=== PATIENT | female | born 1950 | race Caucasian/White ===

== ENCOUNTER → 2017-10-17 | Outpatient (CLI) | payer MEDICARE, OTHER ==
[2014-10-07 21:50] VITALS: BP 116/80
[~2017-10-17] MED LIST: ALBU8.5H6 IH; ALPR0.5T PO; ASPI-482 PO; ASPI-630 PO; CLOP75TA57 PO; DAPA5TAB PO; DOXE10CA PO; DULO60CA6 PO; ESOM40CA PO; ESOM40CA25 PO; FENT1PAT17 TP; FLUT1DIS3 IH; FURO-69 PO; GEMF600T PO; HYDR-2679 PO; HYDR-2766 PO; INSU100C4 SQ; INSU100I17 SQ; INSU100I18 SQ; INSU100V13 SQ; LIPITOR80 MG PO; LIRA0.6P2 SQ; METO100T7 PO; METO50TA29 PO; METO50TA4 PO; MONT10TA6 PO; NITR0.4T SL; NITR0.4T22 SL; POTA10TA PO; POTA20TA82 PO; PREG50CA PO; VANC1PLA2 IV; XOPENEX1.25 MG/3 IH; XOPENEX1.25 MG/3 NEB
[2017-10-17 13:42] LABS: ALBUMIN 3.4 g/dL (3.4-5.0); ALBUMIN/GLOBULIN RATIO 0.8 (1.0-1.7); CALCIUM 9.2 mg/dL (8.5-10.1); CREATININE 0.7 mg/dL (0.6-1.0); GFR 83.7; POTASSIUM 4.4 mmol/L (3.5-5.1); TOTAL BILIRUBIN 0.4 mg/dL (0.2-1.0); TOTAL PROTEIN 7.5 g/dL (6.4-8.2)
[2017-10-18 17:37] LABS: THYROID STIM HORMONE (TSH) 2.473 uIU/mL (0.358-3.740)
== END | disposition home or self-care (01) ==
LOC: LAB 11:45
PROVIDERS: ATTEND Nurse Practitioner
DX: E78.5 Hyperlipidemia, unspecified (principal); R00.2 Palpitations
CPT/HCPCS: 36415; 80053; 80061; 83735; 84443

== ENCOUNTER → 2017-11-23 | Outpatient (CLI) | payer MEDICARE, OTHER ==
[2014-10-07 21:50] VITALS: BP 116/80
[~2017-11-23] MED LIST changes: +IOHEXOL 300 MG/ML 75 ML VIAL. IV ONE
--- NOTE | 2017-11-23 14:36 | RAD ---
EXAM: Chest CT with intravenous contrast. HISTORY: Productive cough. TECHNIQUE: Computed tomographic images of the chest were obtained following the administration of 75 cc Omnipaque 300 intravenous contrast. Multiplanar reformatting was performed. *One or more of the following individualized dose reduction techniques were utilized for this examination: 1. Automated exposure control. 2. Adjustment of the mA and/or kV according to patient size. 3. Use of iterative reconstruction technique. COMPARISON: 07/16/2014. FINDINGS: There is no pulmonary infiltrate, pleural effusion or pneumothorax. There is bilateral basilar, lingula and right middle lobe atelectasis. There is also suspected right middle lobe and lingular scarring. No suspicious pulmonary nodule is seen. The heart is normal in size. The aorta is normal in caliber. There are prominent right inferior paraesophageal lymph nodes, the largest of which measures 2.1 cm in long axis. These are minimally increased compared to the prior study. There is coronary artery atherosclerosis. There is calcifications within the inferior right thyroid lobe. There is hepatomegaly and hepatic steatosis. There are degenerative changes within the spine. No suspicious osseous lesion is seen. IMPRESSION: 1. Bilateral mid and lower thoracic atelectasis and suspected pleural parenchymal scarring. There is infiltrate or suspicious pulmonary nodule. 2. Prominent inferior right paraesophageal lymph nodes. The minimal interval increase in the size of these lymph nodes over a three-year interval compared to the prior study favors a benign physiologic or reactive etiology rather than underlying neoplasm. 3. Hepatomegaly and hepatic steatosis. Electronically signed by: Jasmin Kramer MD (11/23/2017 2:33 PM) [email or web address]
== END | disposition home or self-care (01) ==
LOC: CT 12:58
PROVIDERS: ATTEND Physician Assistant
DX: I25.10 Atherosclerotic heart disease of native coronary artery without angina pectoris (principal); K76.0 Fatty (change of) liver, not elsewhere classified; R16.0 Hepatomegaly, not elsewhere classified; R91.1 Solitary pulmonary nodule
CPT/HCPCS: 71260; Q9967

== ENCOUNTER → 2017-12-27 | Day surgery (SDC) | payer MEDICARE, OTHER ==
[~2017-12-27] MED LIST changes: +ALBUTEROL SULFATE 2.5 MG/3 ML NEBU. NEB PRN; +ATROPINE 0.5 MG/5 ML DISP.SYRIN. IV PRN; +FLUT9.9S NS; +INSU100V31 SQ; -IOHEXOL 300 MG/ML 75 ML VIAL. IV ONE; +IV RINGERS SOLUTION,LACTATED 1,000 ML IV SCH; +LIDOCAINE 2% PF Vial for OR 5 ML VIAL. ONE; +NALOXONE 0.4 MG/ML VIAL. IV PRN; +ONDANSETRON PF 4 MG/2 ML VIAL. IV PRN; +PROPOFOL 10,000 MCG/ML (20ML) VIAL IV ONE; +PROPOFOL 20 ML IV ONE; +diphenhydrAMINE 50 MG/ML VIAL IV PRN
[2017-12-27 12:49] VITALS: BP 134/85
== END | disposition home or self-care (01) ==
LOC: SURG 10:18
PROVIDERS: ATTEND Internal Medicine Gastroenterology
DX: Z09 Encounter for follow-up examination after completed treatment for conditions other than malignant neoplasm (principal); Z86.010 Personal history of colon polyps; K57.30 Diverticulosis of large intestine without perforation or abscess without bleeding; K64.8 Other hemorrhoids; K64.4 Residual hemorrhoidal skin tags; I10 Essential (primary) hypertension; E11.9 Type 2 diabetes mellitus without complications; J44.9 Chronic obstructive pulmonary disease, unspecified; I25.10 Atherosclerotic heart disease of native coronary artery without angina pectoris; M19.90 Unspecified osteoarthritis, unspecified site; K21.9 Gastro-esophageal reflux disease without esophagitis; E66.9 Obesity, unspecified; M79.7 Fibromyalgia; L40.50 Arthropathic psoriasis, unspecified; Z98.51 Tubal ligation status; Z98.890 Other specified postprocedural states; Z86.73 Personal history of transient ischemic attack (TIA), and cerebral infarction without residual deficits; Z88.8 Allergy status to other drugs, medicaments and biological substances; Z68.41 Body mass index [BMI] 40.0-44.9, adult; Z87.891 Personal history of nicotine dependence; Z79.82 Long term (current) use of aspirin; Z79.4 Long term (current) use of insulin; Z79.899 Other long term (current) drug therapy
CPT/HCPCS: 45378; J2704; J7120; J2001

== ENCOUNTER → 2018-03-12 | Outpatient (CLI) | payer MEDICARE, OTHER ==
[2017-12-27 12:49] VITALS: BP 134/85
[~2018-03-12] MED LIST changes: -ALBUTEROL SULFATE 2.5 MG/3 ML NEBU. NEB PRN; -ATROPINE 0.5 MG/5 ML DISP.SYRIN. IV PRN; -IV RINGERS SOLUTION,LACTATED 1,000 ML IV SCH; -LIDOCAINE 2% PF Vial for OR 5 ML VIAL. ONE; -NALOXONE 0.4 MG/ML VIAL. IV PRN; -ONDANSETRON PF 4 MG/2 ML VIAL. IV PRN; -PROPOFOL 10,000 MCG/ML (20ML) VIAL IV ONE; -PROPOFOL 20 ML IV ONE; -diphenhydrAMINE 50 MG/ML VIAL IV PRN
--- NOTE | 2018-03-12 17:03 | RAD ---
Pelvic ultrasound dated 03/12/2018. No comparison available. Clinical indication: Left lower quadrant pain. Intermittent for years. FINDINGS: Transabdominal and transvaginal imaging was performed. Uterus measures 7.4 x 4.9 x 2.8 cm. Hypoechoic nodules within the uterine body measuring up to 1.2 cm in size. The endometrial complex is normal in thickness measuring up to 3 mm. Right ovary measures 1.8 x 1.7 x 1.3 cm. Left ovary measures 2.5 x 1.8 x 1.4 cm. No adnexal mass or free fluid. IMPRESSION: 1. No acute sonographic abnormality. 2. Fibroid uterus. Electronically signed by: Giorgi De Los Santos MD (03/12/2018 5:00 PM) [id number]
== END | disposition home or self-care (01) ==
LOC: US 14:43
PROVIDERS: ATTEND Physician Assistant
DX: D25.9 Leiomyoma of uterus, unspecified (principal); I10 Essential (primary) hypertension; E11.9 Type 2 diabetes mellitus without complications; J44.9 Chronic obstructive pulmonary disease, unspecified; K21.9 Gastro-esophageal reflux disease without esophagitis; E78.5 Hyperlipidemia, unspecified
CPT/HCPCS: 76830; 76856

== ENCOUNTER → 2018-06-27 | Outpatient (CLI) | payer MEDICARE, OTHER ==
[2017-12-27 12:49] VITALS: BP 134/85
[2018-06-27 11:21] LABS: ALBUMIN 3.4 g/dL (3.4-5.0); ALBUMIN/GLOBULIN RATIO 0.8 (1.0-1.7); CALCIUM 9.2 mg/dL (8.5-10.1); CREATININE 0.8 mg/dL (0.6-1.0); GFR 71.5; POTASSIUM 4.4 mmol/L (3.5-5.1); TOTAL BILIRUBIN 0.4 mg/dL (0.2-1.0); TOTAL PROTEIN 7.6 g/dL (6.4-8.2)
[2018-06-27 21:12] LABS: HEMOGLOBIN A1C 8.8 % (4.8-5.6)
== END | disposition home or self-care (01) ==
LOC: LAB 10:16
PROVIDERS: ATTEND Nurse Practitioner
DX: E78.5 Hyperlipidemia, unspecified (principal); E11.9 Type 2 diabetes mellitus without complications; Z79.4 Long term (current) use of insulin
CPT/HCPCS: 36415; 80053; 80061; 83036

== ENCOUNTER → 2018-11-07 | Outpatient (CLI) | payer MEDICARE, OTHER ==
[2017-12-27 12:49] VITALS: BP 134/85
[~2018-11-07] MED LIST changes: -HYDR-2766 PO; +HYDR-2769 PO
== END | disposition home or self-care (01) ==
LOC: SURG 14:56
PROVIDERS: ATTEND Anesthesiology Pain Medicine
DX: M25.551 Pain in right hip (principal); E11.9 Type 2 diabetes mellitus without complications; J44.9 Chronic obstructive pulmonary disease, unspecified; I11.0 Hypertensive heart disease with heart failure; I50.9 Heart failure, unspecified; Z86.73 Personal history of transient ischemic attack (TIA), and cerebral infarction without residual deficits
CPT/HCPCS: 99204

== ENCOUNTER → 2018-11-29 | Outpatient (CLI) | payer MEDICARE, OTHER ==
[2017-12-27 12:49] VITALS: BP 134/85
[~2018-11-29] MED LIST changes: +BUPIVACAINE MPF 0.25% 10 ML VIAL. ONE; +IOHEXOL 300 MG/ML 50 ML VIAL. ONE; +LIDOCAINE 1% PF 30 ML VIAL. ONE; +methylPREDNISolone ACETATE 80 MG/ML VIAL. ONE
== END | disposition home or self-care (01) ==
LOC: SURG 13:06
PROVIDERS: ATTEND Anesthesiology Pain Medicine
DX: M16.12 Unilateral primary osteoarthritis, left hip (principal); Z88.2 Allergy status to sulfonamides; I10 Essential (primary) hypertension; E11.9 Type 2 diabetes mellitus without complications; Z79.899 Other long term (current) drug therapy; Z79.82 Long term (current) use of aspirin; Z79.84 Long term (current) use of oral hypoglycemic drugs; Z79.01 Long term (current) use of anticoagulants; J44.9 Chronic obstructive pulmonary disease, unspecified; I25.10 Atherosclerotic heart disease of native coronary artery without angina pectoris; K21.9 Gastro-esophageal reflux disease without esophagitis; Z86.73 Personal history of transient ischemic attack (TIA), and cerebral infarction without residual deficits; Z88.1 Allergy status to other antibiotic agents; Z88.6 Allergy status to analgesic agent; Z88.8 Allergy status to other drugs, medicaments and biological substances
CPT/HCPCS: 20610; 77002; 82947; J1040; J2001; J3490; Q9967; 20611

== ENCOUNTER → 2018-12-13 | Outpatient (CLI) | payer MEDICARE, OTHER ==
[2017-12-27 12:49] VITALS: BP 134/85
[~2018-12-13] MED LIST changes: -BUPIVACAINE MPF 0.25% 10 ML VIAL. ONE; -IOHEXOL 300 MG/ML 50 ML VIAL. ONE; -LIDOCAINE 1% PF 30 ML VIAL. ONE; -methylPREDNISolone ACETATE 80 MG/ML VIAL. ONE
--- NOTE | 2018-12-13 16:51 | RAD ---
DATE: 12/13/2018 EXAM: MAMMO BRYAN DÍAZ, BREAST LEFT HISTORY: Left breast lump. COMPARISON: 03/07/2012 mammographic exam This study was interpreted with the benefit of Computerized Aided Detection (CAD). Breast Density: SCATTERED The breast parenchyma shows scattered fibroglandular densities. Breast parenchyma level B. FINDINGS: At the left lower inner quadrant 12 cm from the nipple , there is a spiculated irregularly marginated mass with feli shaped calcifications and distortion noted. This finding measures up to 3.2 cm anteroposterior x 1.8 cm transverse x 1.7 cm longitudinal. Benign right axillary lymph nodes are present. No right breast masses. Limited left breast ultrasound examination at approximately 8:00 region demonstrates a hypoechoic mass measuring 1.3 cm x 1 cm x 0.7 cm tall. Flow is evident within it. It is irregularly marginated. IMPRESSION: Left lower inner breast mass posteriorly located of significant concern for malignancy. Biopsy by ultrasound guidance is recommended. On 12/13/2018 at 4:46 PM, results reported to Dr. Villavicencio's nurse Jesus Michaud. BI-RADS CATEGORY: 4 SUSPICIOUS ABNORMALITY- BIOPSY SHOULD BE CONSIDERED RECOMMENDED FOLLOW-UP: BIO BIOPSY RECOMMENDED PQRS compliance statement: Patient information was entered into a reminder system with a target due date pending biopsy for the next mammogram. Mammography is a sensitive method for finding small breast cancers, but it does not detect them all and is not a substitute for careful clinical examination. A negative mammogram does not negate a clinically suspicious finding and should not result in delay in biopsying a clinically suspicious abnormality. "Our facility is accredited by the [employer]ammography [employer]."
== END | disposition home or self-care (01) ==
LOC: MAMMO 13:42
PROVIDERS: ATTEND Family Medicine
DX: N63.24 Unspecified lump in the left breast, lower inner quadrant (principal)
CPT/HCPCS: 76641; 77066; G0279; 77062

== ENCOUNTER 2019-04-30 14:45 | Emergency (ER) | payer MEDICARE, OTHER ==
[~2019-04-30] VITALS: Ht 154.9 cm; Wt 99.8 kg
[~2019-04-30 14:45] MED LIST changes: -MONT10TA6 PO; +MONT10TA80 PO
[2019-04-30] MEDS ORDERED: HYDROcodone/APAP 5/325MG 1 TAB TABLET PO ONE ×2 (15:15→16:50)
--- NOTE | 2019-04-30 15:18 | EKG ---
[address] [address] Test Date: 2019-04-30 Test Time: 15:19:00 Pat Name: JACKSON CARRILLO Department: Room: Gender: F Contract Coordinator: : 1950 Requested By: MARY METZ Order Number: [id number] Reading MD: Manish Nathan MD Measurements Intervals [place] Rate: 83 P: 53 MI: 128 QRS: 34 QRSD: 74 T: 48 QT: 350 QTc: 417 Interpretive Statements SINUS RHYTHM Electronically Signed On 05-01-2019 14:14:15 CDT by Manish Nathan MD
[2019-04-30 15:28] LABS: BASO % 1 % (0-3); EOS # 0.2 x10^3/uL (0.0-0.7); EOS % 2 % (0-3); HEMATOCRIT 43.5 % (36.0-47.0); HEMOGLOBIN 14.5 g/dL (12.0-15.5); LYMPH # 1.6 x10^3/uL (1.0-4.8); LYMPH % 18 % (24-48); MEAN CORPUSCULAR HEMOGLOBIN 30 pg (25-35); MEAN CORPUSCULAR HGB CONC 33 g/dL (31-37); MEAN CORPUSCULAR VOLUME 91 fL (79-100); MONO # 0.7 x10^3/uL (0.0-1.1); MONO % 8 % (0-9); NEUT # 6.2 x10^3uL (1.8-7.7); NEUT % 72 % (31-73); PLATELET COUNT 242 x10^3/uL (140-400); RED BLOOD COUNT 4.81 x10^6/uL (3.50-5.40); WHITE BLOOD COUNT 8.6 x10^3/uL (4.0-11.0)
[2019-04-30 15:37] LABS: ALBUMIN 3.7 g/dL (3.4-5.0); ALBUMIN/GLOBULIN RATIO 0.9 (1.0-1.7); CALCIUM 9.4 mg/dL (8.5-10.1); CREATININE 0.8 mg/dL (0.6-1.0); GFR 71.3; POTASSIUM 4.4 mmol/L (3.5-5.1); TOTAL BILIRUBIN 0.3 mg/dL (0.2-1.0); TOTAL PROTEIN 7.8 g/dL (6.4-8.2)
--- NOTE | 2019-04-30 15:41 | RAD ---
EXAM: CHEST 1 VIEW History: Chest pain COMPARISON: 07/15/2014 TECHNIQUE: Single portable radiograph of the chest FINDINGS: The cardiac silhouette is unremarkable. The lungs are clear bilaterally. The costophrenic sulci are clear and well demarcated. IMPRESSION: No radiographic evidence of an acute cardiopulmonary process. Electronically signed by: Suresh Tiwari MD (04/30/2019 3:38 PM) [place] [id number]
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
[2019-04-30] MEDS ORDERED: OXYC1TAB15 PO (17:32)
[2019-04-30] MEDS ORDERED: CLIN300C8 PO (18:12)
[2019-04-30 18:35] VITALS: BP 155/91
== END 2019-04-30 18:35 | disposition home or self-care (01) ==
LOC: ER 14:45
DX: T21.01XA Burn of unspecified degree of chest wall, initial encounter (principal); M19.90 Unspecified osteoarthritis, unspecified site; Z86.73 Personal history of transient ischemic attack (TIA), and cerebral infarction without residual deficits; E11.9 Type 2 diabetes mellitus without complications; I11.9 Hypertensive heart disease without heart failure; Z88.6 Allergy status to analgesic agent; Z88.2 Allergy status to sulfonamides; Z88.1 Allergy status to other antibiotic agents; Z88.8 Allergy status to other drugs, medicaments and biological substances; Y63.2 Overdose of radiation given during therapy
CPT/HCPCS: 36415; 71045; 80053; 84484; 85025; 93005; 99285

== ENCOUNTER → 2019-05-16 | Outpatient (CLI) | payer MEDICARE, OTHER ==
[2019-04-30 18:35] VITALS: BP 155/91
[~2019-05-16] MED LIST changes: +CLIN300C8 PO; +OXYC1TAB15 PO
--- NOTE | 2019-05-16 13:01 | RAD ---
EXAM: CT Abdomen and Pelvis without IV contrast CLINICAL HISTORY: Gross hematuria, pelvic pain. COMPARISON: none TECHNIQUE: Helical CT of the abdomen and pelvis without intravenous contrast. Axial, coronal and sagittal reformatted images were generated. PQRS compliance statement - One or more of the following individualized dose reduction techniques were utilized for this study: 1. Automated exposure control 2. Adjustment of the mA and/or kV according to patient size 3. Use of iterative reconstruction technique FINDINGS: Lack of intravenous contrast limits evaluation of solid organs, vasculature, and lymph nodes. Lower chest: Lung bases are clear. Abdomen and Pelvis: Diffuse hepatic hypoattenuation likely hepatic steatosis. Liver is enlarged measuring 20 cm in craniocaudal dimension. Spleen is unremarkable. Adrenal glands are normal. Pancreas is unremarkable. Gallbladder is normal. No biliary ductal dilatation. No renal tract calculus. No focal renal lesion. No hydronephrosis. No hydroureter. Marked bladder wall thickening, accentuated by low bladder volume. Mild associated fat infiltration. Moderate colonic stool content is seen. Appendix is normal. No significant right lower quadrant. Colonic fat infiltration.No small or large bowel dilatation to suggest bowel obstruction. No abdominal or pelvic ascites. No abdominal pelvic lymphadenopathy. A few mildly prominent mesenteric and iliac chain/inguinal lymph node are incidentally seen. Atherosclerotic calcifications of aorta are seen. Bones: Degenerative changes in spine most prominent at L4-5. Hip joint degenerative changes are seen, right greater than left. Subchondral sclerosis and irregularity of the left SI joint, greater than right SI joint. IMPRESSION: 1. The bladder is decompressed although there is marked bladder wall thickening with associated fat infiltration, consistent with cystitis, possibly infectious or inflammatory, and underlying mass is not excluded. 2. Bilateral asymmetric sacroiliitis, although may be seen with spondyloarthropathy, favored to represent degenerative change. 3. Hepatomegaly and hepatic steatosis. Electronically signed by: Reno Garner MD (05/16/2019 12:58 PM) [email or web address]
== END | disposition home or self-care (01) ==
LOC: CT 12:23
PROVIDERS: ATTEND Family Medicine
DX: N32.89 Other specified disorders of bladder (principal); K76.0 Fatty (change of) liver, not elsewhere classified; I70.0 Atherosclerosis of aorta; M47.816 Spondylosis without myelopathy or radiculopathy, lumbar region; M16.0 Bilateral primary osteoarthritis of hip; M46.1 Sacroiliitis, not elsewhere classified
CPT/HCPCS: 74176

== ENCOUNTER → 2019-12-09 | Outpatient (CLI) | payer MEDICARE, OTHER ==
[~2019-12-09] MED LIST changes: -NITR0.4T SL; +NITR0.4T24 SL; +POTA20TA4 PO; -POTA20TA82 PO
--- NOTE | 2019-12-09 13:42 | RAD ---
DATE: 12/09/2019 1:05 PM EXAM: DIGITAL DIAGNOSTIC RT HISTORY: Left mastectomy. Screening right breast. COMPARISON: December 13, 2018 Right CC and MLO views of the breasts were performed. This study was interpreted with the benefit of Computerized Aided Detection (CAD). FINDINGS: Breast Density: SCATTERED The breast parenchyma shows scattered fibroglandular densities. Breast parenchyma level B Benign-appearing calcifications, unchanged. No suspicious masses, microcalcifications or architectural distortion. IMPRESSION: No mammographic evidence of malignancy. BI-RADS CATEGORY: 2 BENIGN FINDING(S) RECOMMENDED FOLLOW-UP: 12M 12 MONTH FOLLOW-UP Annual screening mammography is recommended, unless clinically indicated sooner based on symptoms or change in physical exam. PQRS compliance statement: Patient information was entered into a reminder system with a target due date one year for the next mammogram. Mammography is a sensitive method for finding small breast cancers, but it does not detect them all and is not a substitute for careful clinical examination. A negative mammogram does not negate a clinically suspicious finding and should not result in delay in biopsying a clinically suspicious abnormality. "Our facility is accredited by the [employer]ammography [employer]."
== END | disposition home or self-care (01) ==
LOC: MAMMO 13:00
PROVIDERS: ATTEND Internal Medicine Hematology & Oncology
DX: C50.312 Malignant neoplasm of lower-inner quadrant of left female breast (principal); Z17.0 Estrogen receptor positive status [ER+]
CPT/HCPCS: 77065

== ENCOUNTER → 2020-04-27 | Outpatient (CLI) | payer MEDICARE, OTHER ==
--- NOTE | 2020-04-27 15:04 | RAD ---
Exam: Left breast ultrasound INDICATION: 70-year-old woman status post left mastectomy and radiation January 2019 with a palpable lump in the mastectomy bed. COMPARISON: Bilateral mammogram and targeted left breast ultrasound of 12/13/2018. TECHNIQUE: Grayscale and color Doppler imaging of the left chest wall in the area of palpable concern, where the lower outer quadrant left breast was located. FINDINGS: An oval, parallel orientation circumscribed 6.8 x 3.6 x 5.9 cm mixed solid and cystic mass is present in the lower-outer quadrant left chest wall where the 4:00 position would be 5 cm from the nipple. This is remote from the site of patient's previous primary malignancy, evident at the lower inner quadrant left breast. There is no internal vascularity to this mass. IMPRESSION: Sonographically benign nearly 6 cm mixed solid and cystic mass in the lower-outer quadrant anterior left chest wall, compatible with a postoperative seroma. Recommend clinical management which may include core needle biopsy or surgical excision if clinically appropriate. In the absence of any clinically suspicious findings, routine mammographic screening of the contralateral breast and clinical follow-up of the palpable lump in the left chest wall is recommended. BI-RADS Category 2 Benign findings Clinical management recommended
== END ==
LOC: US 12:18
PROVIDERS: ATTEND Internal Medicine Hematology & Oncology
DX: C50.312 Malignant neoplasm of lower-inner quadrant of left female breast (principal); N60.02 Solitary cyst of left breast; Z17.0 Estrogen receptor positive status [ER+]
CPT/HCPCS: 76641

== ENCOUNTER 2020-10-08 07:25 | Inpatient (IN) | payer MEDICARE, OTHER ==
[~2020-10-08] VITALS: Ht 154.9 cm; Wt 105.2 kg
[~2020-10-08 07:25] MED LIST changes: -CLIN300C8 PO; +CLIN300C9 PO
[2020-10-08] MEDS ORDERED: IV NORMAL SALINE 500ML 500 ML IV ONE (07:45)
--- NOTE | 2020-10-08 07:50 | PHYS DOC ---
Past History Past Medical History: Arthritis, Cancer, CVA, Diabetes, Heart Disease, Hypertension, Other Past Surgical History: Cancer Surgery, Other Additional Past Surgical Histo: tonsillectomy, hemmoroidectomy Smoking: Non-smoker Alcohol Use: None Drug Use: None General Adult EDM: Chief Complaint: CHEST PAIN HPI: HPI: This is a pleasant 70-year-old female with a history of carotid stenosis diabetes and hypertension who presents the emergency department today with chest pain. It is a mild to moderate pressure sensation associated with palpitations. Started at 4:00 this morning. Associated with some nausea without diaphoresis. She denies vomiting. The pain is in the sternum and epigastrium. It is nonradiating, but she additionally does have back pain which she reports is chronic. Review of systems negative for fevers chills diaphoresis. Positive for chest pain and abdominal pain. Negative for headache nuchal rigidity neck stiff pain. Negative for focal neurologic deficit, slurred speech dizziness. All other review of systems negative. ED course: 70-year-old female presenting with chest pain and abdominal pain. EKG reviewed by myself shows sinus rhythm with a tachycardic rate. ST segments show some ST depression in the lateral leads which may be rate dependent. Patient was given aspirin nitroglycerin and IV fluids. On reexamination she is feeling much better. Her pain is almost entirely gone on reexamination. CT angiogram negative for pulmonary embolism. D-dimer was mildly elevated. CBC unremarkable. Chemistry panel shows negative troponin. Urinalysis unremarkable. I spoke with Dr. WILLS on recommendations for admission either to [place] or [place]. He recommends admitting to [facility] for serial troponins and cardiology consultation. The patient was then admitted to Dr. Cortez who accepts patient for admission. Patient's pain did improve substantially on admission. Review of Systems: Review of Systems: Constitutional: Denies fever or chills Eyes: Denies change in visual acuity HENT: Denies nasal congestion or sore throat Respiratory: Denies cough or shortness of breath Cardiovascular: Denies chest pain or edema GI: Denies abdominal pain, nausea, vomiting, bloody stools or diarrhea : Denies dysuria Musculoskeletal: Denies back pain or joint pain Integument: Denies rash Neurologic: Denies headache, focal weakness or sensory changes Endocrine: Denies polyuria or polydipsia Lymphatic: Denies swollen glands Psychiatric: Denies depression or anxiety Current Medications: Current Meds: Current Medications Medications (Trade) Dose Ordered Sig/Elaina Start Time Stop Time Status Last Admin Dose Admin Sodium Chloride 500 ml @ 0 mls/hr 1X ONCE 10/08/20 07:45 10/08/20 07:46 DC Allergies: Allergies: Allergies Coded Allergies Type Severity Reaction Last Updated Verified tramadol Allergy Severe seizure 04/30/19 Yes clonazepam Allergy Intermediate 04/30/19 Yes diltiazem Allergy Intermediate 04/30/19 Yes nitrofurantoin Allergy Intermediate rash 04/30/19 Yes valsartan Allergy Intermediate chest pain 04/30/19 Yes Sulfa (Sulfonamide Antibiotics) Allergy Mild 04/30/19 Yes cephalexin Allergy Mild cramps 04/30/19 Yes isosorbide Allergy Mild Rash 04/30/19 Yes moxifloxacin Allergy Mild rash 04/30/19 Yes lisinopril Allergy Unknown 04/30/19 Yes Physical Exam: PE: Constitutional: Well developed, well nourished, no acute distress, non-toxic appearance. [] HENT: Normocephalic, atraumatic, bilateral external ears normal, oropharynx moist, no oral exudates, nose normal. [] Eyes: PERRLA, EOMI, conjunctiva normal, no discharge. [] Neck: Normal range of motion, no tenderness, supple, no stridor. [] Cardiovascular:Heart rate regular rhythm, no murmur [] Lungs & Thorax: Bilateral breath sounds clear to auscultation [] Abdomen: Bowel sounds normal, soft, no tenderness, no masses, no pulsatile masses. [] Skin: Warm, dry, no erythema, no rash. [] Back: No tenderness, no CVA tenderness. [] Extremities: No tenderness, no cyanosis, no clubbing, ROM intact, no edema. [] Neurologic: Alert and oriented X 3, normal motor function, normal sensory function, no focal deficits noted. [] Psychologic: Affect normal, judgement normal, mood normal. [] Current Patient Data: Vital Signs: Vital Signs Date Time Temp Pulse Resp B/P (MAP) Pulse Ox O2 Delivery O2 Flow Rate FiO2 10/08/20 07:42 211/104 (139) 10/08/20 07:32 97.8 98 17 92 Room Air EKG: EKG: [] Initial EKG at 732 shows sinus rhythm with a tachycardic rate. Intervals are within normal limits. ST segments show less than [address] depression in lead V3 and V4. No reciprocal ST elevation. Does not meet STEMI criteria. 2nd Posterior EKG obtained shows no ST elevation in leads V7,8 or 9. at 758AM. Radiology/Procedures: Radiology/Procedures: [] Heart Score: Risk Factors: Risk Factors: DM, Current or recent (<one month) smoker, HTN, HLP, family history of CAD, obesity. Risk Scores: Score 0 - 3: 2.5% MACE over next 6 weeks - Discharge Home Score 4 - 6: 20.3% MACE over next 6 weeks - Admit for Clinical Observation Score 7 - 10: 72.7% MACE over next 6 weeks - Early Invasive Strategies Course & Med Decision Making: Course & Med Decision Making Pertinent Labs and Imaging studies reviewed. (See chart for details) [] Dragon Disclaimer: Dragon Disclaimer: This electronic medical record was generated, in whole or in part, using a voice recognition dictation system. Departure Departure: Impression: Primary Impression: Chest pain Referrals: SHOBHA QUEVEDO MD (PCP) HEART Score for Chest Pain PTs The HEART Score for CP Pts HEART Score for Chest Pain: HEART Score for Chest Pain Response (Comments) Value History Moderately Suspicious 1 ECG Nonspecific Repolarizatio 1 Age > 65 2 Risk Factors 1 or 2 Risk Factors 1 Troponin < Normal Limit 0 Total 5 Risk Factors: Risk Factors: DM, Current or recent (<one month) smoker, HTN, HLP, family history of CAD, obesity. Risk Scores: Score 0 - 3: 2.5% MACE over next 6 weeks - Discharge Home Score 4 - 6: 20.3% MACE over next 6 weeks - Admit for Clinical Observation Score 7 - 10: 72.7% MACE over next 6 weeks - Early Invasive Strategies ZAINA RAMOS MD Oct 08, 2020 07:50
[2020-10-08 08:09] LABS: BASO # 0.1 x10^3/uL (0.0-0.2); BASO % 1 % (0-3); EOS # 0.2 x10^3/uL (0.0-0.7); EOS % 2 % (0-3); HEMATOCRIT 43.5 % (36.0-47.0); HEMOGLOBIN 14.2 g/dL (12.0-15.5); LYMPH # 2.7 x10^3/uL (1.0-4.8); LYMPH % 28 % (24-48); MEAN CORPUSCULAR HEMOGLOBIN 30 pg (25-35); MEAN CORPUSCULAR HGB CONC 33 g/dL (31-37); MEAN CORPUSCULAR VOLUME 91 fL (79-100); MONO # 0.7 x10^3/uL (0.0-1.1); MONO % 7 % (0-9); NEUT # 5.9 x10^3uL (1.8-7.7); NEUT % 62 % (31-73); PLATELET COUNT 225 x10^3/uL (140-400); RED CELL DISTRIBUTION WIDTH 14.7 % (11.5-14.5); WHITE BLOOD COUNT 9.5 x10^3/uL (4.0-11.0)
[2020-10-08] MEDS ORDERED: NITROGLYCERIN SUBLINGUAL 0.4 MG BOTTLE OF 25. SL ONE (08:10)
[2020-10-08] MEDS ORDERED: MORPHINE SULFATE 2 MG/ML DISP.SYRIN. IV ONE (08:15)
[2020-10-08 08:21] LABS: CALCIUM 9.3 mg/dL (8.5-10.1); CREATININE 0.7 mg/dL (0.6-1.0); POTASSIUM 3.9 mmol/L (3.5-5.1)
--- NOTE | 2020-10-08 08:22 | RAD ---
XR CHEST 1V 10/08/2020 7:41 AM INDICATION: Chest pain COMPARISON: 04/30/2019 TECHNIQUE: Portable frontal view of the chest is provided. FINDINGS: The cardiomediastinal silhouette is within normal limits. Lungs are clear. There are no significant pleural effusions. There is no pulmonary vascular congestion. No pneumothora x. No suspicious osseous abnormality. IMPRESSION: There is no acute cardiopulmonary process. Electronically signed by: Deirdre Pham MD (10/08/2020 8:20 AM) [facility]
[2020-10-08 08:27] LABS: ALBUMIN 3.5 g/dL (3.4-5.0); DIRECT BILIRUBIN 0.1 mg/dL (0.0-0.2); MAGNESIUM 2.1 mg/dL (1.8-2.4); TOTAL BILIRUBIN 0.2 mg/dL (0.2-1.0); TOTAL PROTEIN 7.9 g/dL (6.4-8.2)
[2020-10-08] MEDS ORDERED: ONDANSETRON PF 4 MG/2 ML VIAL. IV ONE (08:30)
[2020-10-08] MEDS ORDERED: IOHEXOL 350 MG/ML 100 ML VIAL. IV ONE (08:45)
--- NOTE | 2020-10-08 08:45 | EKG ---
[facility] ED [facility] [address] [place] [id number] Test Date: 2020-10-08 Test Time: 07:32:44 Pat Name: JACKSON CARRILLO Department: Room: Gender: F Reports Analyst: : 1950 Requested By: ZAINA RAMOS Order Number: [id number] Reading MD: Jovan Khan Measurements Intervals [place] Rate: 121 P: 12 [place]: 110 QRS: 26 QRSD: 78 T: 51 QT: 318 QTc: 454 Interpretive Statements SINUS TACHYCARDIA LEFT ATRIAL ABNORMALITY ABNORMAL ECG Electronically Signed On 10-11-2020 10:14:07 FRONT DESK TEAM MEMBER by Jovan Khan
--- NOTE | 2020-10-08 08:47 | EKG ---
[facility] ED [address] [place] [id number] Test Date: 2020-10-08 Test Time: 07:58:50 Pat Name: JACKSON CARRILLO Department: Room: Gender: F Bun Icer: : 1950 Requested By: ZAINA RAMOS Order Number: [id number] Reading MD: Manish Nathan MD Measurements Intervals [place] Rate: 118 P: 33 [place]: 88 QRS: 19 QRSD: 80 T: 39 QT: 318 QTc: 448 Interpretive Statements SINUS TACHYCARDIA Electronically Signed On 10-09-2020 16:46:29 [employer] OFFICER by Manish Nathan MD
[2020-10-08] MEDS ORDERED: CONTRAST GIVEN. MC PRN (09:00)
--- NOTE | 2020-10-08 10:15 | RAD ---
EXAM: CT Pulmonary Angiogram INDICATION: Reason: cp elveated dimer, eval for pe / Spl. Instructions: / History: TECHNIQUE: Multi-detector row images were acquired from the thoracic inlet through the upper abdomen with the use of IV contrast. Sagittal and coronal images were acquired from the transaxial data. OR P images of the pulmonary arteries were obtained. All CT scans performed at this facility utilize dos e optimization techniques as appropriate to the exam, including the following: Automated exposure con trol and adjustment of the mA and/or KV according to patient size (this includes techniques or standa rdized protocols for targeted exams where dose is indication/reason for exam). IV CONTRAST: Administered COMPARISON: 11/23/[address] with IV contrast FINDINGS: PULMONARY ARTERIES: No pulmonary emboli are identified. CARDIOVASCULAR: There is apparent thickening of the left ventricular free wall interventricular sept um, respectively measuring up to 2.6 and 2.7 cm. Fibrofatty infiltration of the subendocardial myocar dium is suggested at the left ventricular apex with ventricular free wall thinning. Aorta is normal c aliber but shows extensive calcifications. MEDIASTINUM & JEZ: No adenopathy or masses. LUNGS: No pulmonary infiltrate, nodule, or other focal abnormality. PLEURAL SPACE: No pleural effusions or pneumothorax. OSSEOUS & SOFT TISSUE: Surgical changes from a previous left lumpectomy with a large seroma measuring 7.4 x 4.3 x 5.6 cm. ABDOMEN: The visualized portions of the upper abdomen are unremarkable. IMPRESSION: 1. No evidence of pulmonary emboli. 2. Mild bibasilar atelectatic changes with no acute cardiopulmonary process otherwise shown. 3. There is evidence of atherosclerotic vascular disease with possible previous apical myocardial inf arction and hypertrophic cardiomyopathy. Correlate clinically. EXAM: CT Abdomen and Pelvis with IV contrast INDICATION: Reason: cp elveated dimer, eval for pe / Spl. Instructions: / History: TECHNIQUE: Multi-detector row CT images were acquired from the lung bases through the abdomen and pel vis with the use of IV contrast. Sagittal and coronal images were acquired from the transaxial data. All CT scans performed at this facility utilize dose optimization techniques as appropriate to the ex am, including the following: Automated exposure control and adjustment of the mA and/or KV according to patient size (this includes techniques or standardized protocols for targeted exams where dose is indication/reason for exam). IV CONTRAST: Administered ORAL CONTRAST: Not administered COMPARISON: Abdomen and pelvis CT without IV contrast of 05/16/2019 FINDINGS: LOWER CHEST: Unremarkable LIVER: Unremarkable BILIARY SYSTEM: Gallbladder is unremarkable. Bile ducts are not dilated. PANCREAS: Unremarkable SPLEEN: Unremarkable ADRENALS: Unremarkable KIDNEYS & URETERS: Unremarkable BLADDER: Unremarkable REPRODUCTIVE ORGANS: Unremarkable GASTROINTESTINAL: The stomach, small bowel, and colon are unremarkable. The appendix is normal. MESENTERY/PERITONEUM/RETROPERITONEUM: Unremarkable VASCULAR: Extensive atheroscelrotic calcifications in the arteries. LYMPH NODES: No adenopathy OSSEOUS & SOFT TISSUES: Lumbar spinal degenerative changes.. IMPRESSION: No acute findings in the abdomen or pelvis on CT with IV contrast. Electronically signed by: Thad Issa MD (10/08/2020 10:12 AM) [id number]
[2020-10-08 10:24] LABS: BACTERIA,URINE 0 /HPF (0-FEW); BILIRUBIN,URINE NEG (NEG); CLARITY,URINE CLEAR; COLOR,URINE YELLOW; GLUCOSE,URINE NEG (NEG); NITRITE,URINE NEG (NEG); RBC,URINE OCC /HPF (0-2); SQUAMOUS EPITHELIAL CELL,UR FEW /LPF; UROBILINOGEN,URINE 0.2 mg/dL (0.2 mg/dL); WBC,URINE OCC /HPF (0-4)
[2020-10-08] MEDS ORDERED: IV NORMAL SALINE 1,000ML 1,000 ML IV ONE (11:30)
[2020-10-08] MEDS ORDERED: NITROGLYCERIN SUBLINGUAL 0.4 MG BOTTLE OF 25. SL PRN (11:30)
[2020-10-08] MEDS ORDERED: ASPIRIN CHEWABLE 81 MG TABLET. PO ONE (12:00)
[2020-10-08 14:39] VITALS: BP 147/80
[2020-10-08] MEDS ORDERED: ANAS1TAB47 PO (14:53)
[2020-10-08] MEDS ORDERED: CETI10TA74 PO (14:53)
[2020-10-08] MEDS ORDERED: INSU100I13 SQ (14:53)
[2020-10-08] MEDS ORDERED: CRESTOR40 MG PO (14:53)
[2020-10-08] MEDS ORDERED: FLUT1DIS3 IH (14:53)
[2020-10-08] MEDS ORDERED: METF500T16 PO (14:53)
[2020-10-08] MEDS ORDERED: ALBUTEROL SULFATE 2.5 MG/3 ML NEBU. NEB PRN (17:00)
[2020-10-08] MEDS ORDERED: NON FORMULARY ITEM (Levalbuterol Hcl (Xopenex) 1 VIAL) NEB PRN (17:00)
[2020-10-08] MEDS ORDERED: ALBUTEROL SULFATE 8GM INHALER. IH SCH ×2 (17:00→20:00)
[2020-10-08] MEDS: methylPREDNISolone SOD SUCC PF 40 MG/ML VIAL. IV SCH (17:07)
[2020-10-08] MEDS ORDERED: MORPHINE SULFATE 2 MG/ML DISP.SYRIN. IV PRN (18:15)
[2020-10-08] MEDS: ENOXAPARIN ** NOTE DOSE ** SYRINGE SQ SCH (18:20)
[2020-10-08] MEDS ORDERED: ZOLPIDEM 5 MG TABLET. PO PRN (19:00)
[2020-10-08] MEDS: BUDESONIDE 0.5 MG/2 ML NEBU NEB SCH (19:17)
[2020-10-08] MEDS: IPRATRPIUM/ALBUTEROL 0.5/2.5MG 3 ML NEBU. NEB SCH (19:17)
[2020-10-08 19:47] VITALS: BP 152/79
--- NOTE | 2020-10-08 20:36 | RAD ---
Exam: CT right femur without contrast INDICATION: Fall, right hip, severe leg pain TECHNIQUE: Sequential axial images through the right femur obtained without IV contrast. Sagittal and coronal reformatted images were reconstructed from the axial data and reviewed. Comparisons: CT 05/16/2019 FINDINGS: Visualized intrapelvic structures are unremarkable. Bone mineralization is normal. Bony appearance at the right femoral neck which is stable compared to 2019 there is a small suprapatellar effusion. No acute fractures identified. There is mild degenerati ve change at the right hip joint. Visualized soft tissues are unremarkable. IMPRESSION: 1. No acute osseous abnormality identified at the right femur. 2. Small right suprapatellar effusion. Exposure: One or more of the following in the visualized dose reduction techniques were utilized for this examination: 1. Automated exposure control 2. Adjustment of the MA and/or KV according to patient size 3. Use of iterative of reconstructive technique Electronically signed by: Carey Pak MD (10/08/2020 8:33 PM) [facility]
[2020-10-08] MEDS ORDERED: NON FORMULARY ITEM (Fluticasone/Salmeterol (Advair 250-50 Diskus) 1 PUFF) IH SCH ×2 (21:00)
[2020-10-08] MEDS ORDERED: INSULIN DETEMIR 20 UNIT SQ SCH (21:00)
[2020-10-08] MEDS: MONTELUKAST 10 MG TABLET. PO SCH (21:57)
[2020-10-08] MEDS: ATORVASTATIN CALCIUM 20 MG TABLET PO SCH (21:58)
[2020-10-08] MEDS: METOPROLOL TART IMMED RELEASE 50 MG TABLET PO SCH (21:58)
[2020-10-08] MEDS: INSULIN GLARGINE SYRINGE. SQ SCH (21:59)
--- NOTE | 2020-10-08 22:49 | HP ---
ADMIT DATE: 10/08/2020 HISTORY OF PRESENT ILLNESS: A 70-year-old female who came in with chest pain, [id number] pressure sensation in substernal with palpitations as her heart rate was over 200. The patient did have some nausea without diaphoresis or vomiting. The patient notes it is nonradiating. She has a long history of multiple medical problems noted. The patient was given some nitroglycerin, which relieved her discomfort apparently seen in the Emergency Room talked to Dr. Nathan who says the patient will be safe staying here. The patient otherwise multiple other medical issues, the patient has generalized weakness, had been unable to get out of bed or sit in a chair for several weeks. She has severe excruciating pain in her right hip. She also notes extreme dyspnea with minimal exertion and just generalized obesity as well as diabetes. Patient was admitted primarily for rule out ID protocol, but the plethora of other medical problems are all interrelated. PAST MEDICAL HISTORY: TIAs, cardiac stenosis, sleep apnea, emphysema, hemorrhoids, GERD, urinary tract infections, fibromyalgia, arthritis, morbid obesity, heel surgery, diabetes, psychiatric problems of depression, previous suicide attempt. Pneumococcal vaccination. Suicide attempt was at the age of 17. FAMILY HISTORY: Positive for schizophrenia, cardiovascular disease and cancers. ALLERGIES: SULFUR, KEFLEX, CLONAZEPAM, DILTIAZEM, ISOSORBIDE, LISINOPRIL, MOXIFLOXACIN, NITROFURANTOIN, TRAMADOL and VALSARTAN. SOCIAL HISTORY: The patient denies smoking, alcohol or drug use. CODE STATUS: Full code. MEDICATIONS: On medication reconciliation, Zyrtec, clindamycin, Arimidex for breast cancer, who recently had a mastectomy followed by for Oncology, albuterol sulfate for her asthma, Xopenex, Plavix, Lipitor, Crestor, metoprolol XL, aspirin, Percocet, furosemide, fluticasone, Singulair, fluticasone, metformin 500 b.i.d., Victoza 1.8 mg subcutaneous daily, NovoLog 20 units subcutaneous daily, Lantus 35 units subcutaneous b.i.d. REVIEW OF SYSTEMS: Multiple. The patient has a bad headache, neck ache, extreme shortness of breath, dyspnea with minimal exertion. The patient notes his chest pain had a course as described earlier. Has some mild nausea, no vomiting. Denies abdominal pain, has pain in her right hip of about 9/10-10/10, otherwise unremarkable there. PHYSICAL EXAMINATION: GENERAL: This is a pleasant white female, in moderate amount of pain just lying there in bed. VITAL SIGNS: Blood pressure approximately 160/90, blood pressure went up to 210, pulse 92, the patient's otherwise pulse up to 113. Afebrile, oxygen saturation 92%; however, did drop down to 86% at one time. She is on nasal cannula. Otherwise, the patient is alert and oriented, in pain, grimacing with talking. HEENT: Atraumatic, normocephalic. Eyes: PERRLA without jaundice. The mouth and throat were normal. NECK: Supple, no JVD or thyromegaly. LUNGS: Diminished. Poor movement of air, but basically clear. CARDIOVASCULAR: Tachycardic, but regular sinus rhythm. BREASTS: She had a mastectomy to the left breast, which was absent. ABDOMEN: Soft, nontender, no rebounding, protuberant. EXTREMITIES: No clubbing, cyanosis or edema except for the right hip, which is excruciating pain even on mild touching. The patient's pulses in the feet were mildly diminished, otherwise no swelling was noted. NEUROLOGIC: Alert and oriented. Speech is fluent, spontaneous, appropriate. Cranial nerves 2-12 grossly intact. LABORATORY DATA: As noted. CBC was normal. Chemistries were basically normal as was her troponins throughout. She did have a slight elevation of D-dimer, but a CTA of the chest showed no pulmonary emboli, no acute process noted there. The patient's abdominal pelvic CT was unremarkable showing no abnormality except for extensive calcification of the arteries. Gallbladder was removed. IMPRESSION: Angina, severe right hip pain, morbid obesity, type 2 diabetes, history of coronary artery disease, severe atherosclerosis, marked dyspnea, hypoxia, type 2 diabetes, intractable pain, sinus tachycardia, elevated D-dimer, breast cancer, carotid stenosis. PLAN: The patient otherwise will be monitored carefully, pain management, make further evaluation on this hip once pain is under control and CT scan, also Cardiology consultation, control diabetes and make further evaluation on her as indicated. SHOBHA QUEVEDO MD DR: ZE/scotty JOB#: [id number] / [id number]
[2020-10-08 22:58] VITALS: BP 143/61
[2020-10-09] MEDS: IPRATRPIUM/ALBUTEROL 0.5/2.5MG 3 ML NEBU. NEB SCH ×4 (04:59→22:01)
[2020-10-09 05:59] VITALS: BP 143/72
[2020-10-09] MEDS: PANTOPRAZOLE 40 MG TABLET. PO SCH (07:55)
[2020-10-09] MEDS: CETIRIZINE HCL 10 MG TABLET PO SCH (07:55)
[2020-10-09] MEDS: CLOPIDOGREL BISULFATE 75 MG TABLET PO SCH (07:55)
[2020-10-09] MEDS: METOPROLOL TART IMMED RELEASE 50 MG TABLET PO SCH ×2 (07:55→21:06)
[2020-10-09] MEDS: ASPIRIN ENTERIC COATED 81 MG TABLET.DR. PO SCH (07:55)
[2020-10-09] MEDS: methylPREDNISolone SOD SUCC PF 40 MG/ML VIAL. IV SCH (07:56)
[2020-10-09] MEDS: POTASSIUM CHLORIDE 20 MEQ TABLET.ER. PO SCH ×2 (07:56→09:08)
[2020-10-09] MEDS: FUROSEMIDE 20 MG TABLET PO SCH ×2 (07:56→09:07)
[2020-10-09 08:00] LABS: BASO % 0 % (0-3); EOS % 0 % (0-3); HEMATOCRIT 39.1 % (36.0-47.0); HEMOGLOBIN 12.7 g/dL (12.0-15.5); LYMPH # 1.7 x10^3/uL (1.0-4.8); LYMPH % 16 % (24-48); MEAN CORPUSCULAR HEMOGLOBIN 30 pg (25-35); MEAN CORPUSCULAR HGB CONC 33 g/dL (31-37); MEAN CORPUSCULAR VOLUME 91 fL (79-100); MONO # 0.3 x10^3/uL (0.0-1.1); MONO % 3 % (0-9); NEUT # 8.7 x10^3uL (1.8-7.7); NEUT % 81 % (31-73); PLATELET COUNT 209 x10^3/uL (140-400); RED BLOOD COUNT 4.32 x10^6/uL (3.50-5.40); RED CELL DISTRIBUTION WIDTH 15.1 % (11.5-14.5); WHITE BLOOD COUNT 10.7 x10^3/uL (4.0-11.0)
[2020-10-09] MEDS ORDERED: INSULIN LISPRO 300 UNITS/3 ML VIAL. SQ SCH (08:00)
[2020-10-09] MEDS: ANASTROZOLE 1 MG TABLET PO SCH (08:03)
[2020-10-09 08:07] LABS: ALBUMIN/GLOBULIN RATIO 0.8 (1.0-1.7); CALCIUM 8.9 mg/dL (8.5-10.1); CREATININE 0.6 mg/dL (0.6-1.0); GFR 99.1; POTASSIUM 4.7 mmol/L (3.5-5.1); TOTAL BILIRUBIN 0.3 mg/dL (0.2-1.0); TOTAL PROTEIN 6.9 g/dL (6.4-8.2)
[2020-10-09] MEDS: NON FORMULARY ITEM (Liraglutide (Victoza 3-Pak) 1.8 MG) SQ SCH (09:00)
[2020-10-09] MEDS ORDERED: NON FORMULARY ITEM (Rosuvastatin Calcium (Crestor) 1 TAB) PO SCH (09:00)
[2020-10-09] MEDS: BUDESONIDE 0.5 MG/2 ML NEBU NEB SCH ×2 (09:23→22:02)
[2020-10-09] MEDS: FLUTICASONE 50MCG/NASAL SPRAY 16GM BOTTLE. NS SCH (10:22)
[2020-10-09] MEDS: AZITHROMYCIN 250 MG TABLET. PO SCH (10:23)
[2020-10-09] MEDS: INSULIN GLARGINE SYRINGE. SQ SCH ×2 (10:23→21:09)
[2020-10-09 10:44] VITALS: BP 156/77
[2020-10-09] MEDS: INSULIN LISPRO 300 UNITS/3 ML VIAL. SQ SCH ×2 (12:09→16:36)
--- NOTE | 2020-10-09 12:27 | RAD ---
EXAM: XR BILATERAL HIP (WITH OR WITHOUT PELVIS) 2 VIEWS_RIGHT 10/09/2020 10:41 AM CLINICAL INDICATION: Pain COMPARISON: CT lower extremity 10/08/2020 TECHNIQUE: AP view of the pelvis and AP and frog-leg lateral view of the right hip FINDINGS: No acute fracture. There is moderate right hip joint space narrowing, greatest medially, wi th mild subchondral sclerosis. There are prominent right femoral head and acetabular osteophytes. The left hip and pubic symphysis are maintained. There is mild degenerative joint disease of the left sa croiliac joint. There is severe degenerative disc disease at L4-L5. IMPRESSION: Moderate osteoarthrosis of the right hip. Electronically signed by: Ashly Awan MD (10/09/2020 12:25 PM) [id number]
[2020-10-09 15:34] VITALS: BP 149/69
[2020-10-09 15:43] VITALS: BP 180/72
[2020-10-09] MEDS: amLODIPine BESYLATE 10 MG TABLET PO SCH (17:10)
[2020-10-09] MEDS: ENOXAPARIN ** NOTE DOSE ** SYRINGE SQ SCH (18:08)
[2020-10-09 19:14] VITALS: BP 153/71
--- NOTE | 2020-10-09 20:34 | PN ---
DATE: SUBJECTIVE: A 70-year-old female who came in with some chest discomfort as well as palpitations, heart rate greater than 200. The patient also may have had a significant bladder infection. The patient is being monitored carefully. She seems to be doing a little better this morning and continues to receive insulin to get her sugars down. OBJECTIVE: VITAL SIGNS: Blood pressure has been approximately anywhere from 180/72 (NC), pulse 94, heart rate 98, afebrile. GENERAL: The patient is alert and oriented. LUNGS: Diminished. The patient says she is basically clear and feels better there. CARDIOVASCULAR: Regular sinus rhythm. ABDOMEN: Soft, nontender. EXTREMITIES: No clubbing, cyanosis, nor edema. NEUROLOGIC: Intact. Speech fluent, spontaneous, appropriate. LABORATORY DATA: Blood sugars in the 300s, will be adjusting her insulin course to get that down and also according her blood pressure medications to get her blood pressure under better control. Otherwise, she continues to make good progress. The x-rays of the left hip showed degenerative arthritis, but no signs fortunately to metastatic breast cancer to the right hip where she was complaining of intractable pain. IMPRESSION: Therefore, angina, severe right hip pain, morbid obesity, type 2 diabetes, history of coronary artery disease, severe atherosclerosis, marked dyspnea, hypoxia, type 2 diabetes, intractable pain, sinus tachycardia, elevated D-dimer, breast cancer and carotid stenosis. PLAN: We will continue with present drug therapy, getting the blood sugar down and make further evaluation on her chest discomfort with Cardiology. SHOBHA QUEVEDO MD DR: ZE/scotty JOB#: [id number] / [id number]
[2020-10-09] MEDS: ATORVASTATIN CALCIUM 20 MG TABLET PO SCH (21:07)
[2020-10-09] MEDS: MONTELUKAST 10 MG TABLET. PO SCH (21:07)
[2020-10-09] MEDS: oxyCODONE/APAP 5/325 1 TAB TABLET PO PRN (21:20)
[2020-10-09 22:21] VITALS: BP 150/64
[2020-10-10 05:08] VITALS: BP 121/70
[2020-10-10] MEDS: IPRATRPIUM/ALBUTEROL 0.5/2.5MG 3 ML NEBU. NEB SCH ×4 (06:06→20:47)
[2020-10-10] MEDS: methylPREDNISolone SOD SUCC PF 40 MG/ML VIAL. IV SCH (08:44)
[2020-10-10] MEDS: PANTOPRAZOLE 40 MG TABLET. PO SCH (08:45)
[2020-10-10] MEDS: CLOPIDOGREL BISULFATE 75 MG TABLET PO SCH (08:45)
[2020-10-10] MEDS: CETIRIZINE HCL 10 MG TABLET PO SCH (08:45)
[2020-10-10] MEDS: METOPROLOL TART IMMED RELEASE 50 MG TABLET PO SCH ×2 (08:45→20:47)
[2020-10-10] MEDS: amLODIPine BESYLATE 10 MG TABLET PO SCH (08:45)
[2020-10-10] MEDS: AZITHROMYCIN 250 MG TABLET. PO SCH (08:45)
[2020-10-10] MEDS: ASPIRIN ENTERIC COATED 81 MG TABLET.DR. PO SCH (08:45)
[2020-10-10] MEDS: ANASTROZOLE 1 MG TABLET PO SCH (08:46)
[2020-10-10] MEDS: INSULIN LISPRO 300 UNITS/3 ML VIAL. SQ SCH ×5 (08:52→17:16)
[2020-10-10] MEDS: FLUTICASONE 50MCG/NASAL SPRAY 16GM BOTTLE. NS SCH (08:57)
[2020-10-10] MEDS: NON FORMULARY ITEM (Liraglutide (Victoza 3-Pak) 1.8 MG) SQ SCH (08:58)
[2020-10-10] MEDS: BUDESONIDE 0.5 MG/2 ML NEBU NEB SCH ×2 (09:20→20:47)
[2020-10-10] MEDS: INSULIN GLARGINE SYRINGE. SQ SCH ×2 (09:41→20:54)
[2020-10-10 10:56] VITALS: BP 165/77
[2020-10-10] MEDS ORDERED: DEXTROSE 50% 25 GM / 50ML DISP.SYRIN. IV PRN (12:15)
[2020-10-10] MEDS: guaiFENesin DM 600/30MG 1 TAB TAB.ER.12H PO SCH ×2 (12:41→20:48)
[2020-10-10] MEDS: BENZONATATE 100 MG CAPSULE. PO SCH ×2 (12:44→20:47)
--- NOTE | 2020-10-10 14:06 | PDOC ---
PROVIDER NOTE PROVIDER NOTE PROVIDER NOTE Chart reviewed. Case discussed with ER physician and nursing staff. 70 y.o woman with typical and atypical features of chest pain. Initial chest pain likely due to HTN She does have multiple risk factors. EKG unremarkable, trop are normal. She is on appropriate therapy Will plan for outpt stress testing. Full consult to follow tomorrow. Thanks. Justification of Admission: Justification of Admission: Justification of Admission Dx: N/A JAMES WILLS MD Oct 10, 2020 14:06
[2020-10-10 14:55] VITALS: BP 133/61
[2020-10-10] MEDS: ENOXAPARIN ** NOTE DOSE ** SYRINGE SQ SCH (17:14)
[2020-10-10] MEDS: metFORMIN 500 MG TABLET PO SCH (17:14)
[2020-10-10] MEDS: oxyCODONE/APAP 5/325 1 TAB TABLET PO PRN (17:14)
--- NOTE | 2020-10-10 18:58 | PN ---
DATE: 10/10/2020 SUBJECTIVE: A 70-year-old female in with chest pain and sinus tachycardia. The patient seems to be a little bit more appropriate today in terms of her heart rhythm as well as blood pressure, and sugar is being brought down into a more reasonable range. Otherwise, the patient has no new complaints. OBJECTIVE: VITAL SIGNS: The patient's blood pressure that of 130/60, respiratory rate 20, pulse 80, afebrile. GENERAL: The patient is alert and oriented. LUNGS: Diminished throughout, but basically clear. CARDIOVASCULAR: Stable. ABDOMEN: Soft, nontender. EXTREMITIES: No clubbing, cyanosis or edema. NEUROLOGIC: Stable. IMPRESSION: Angina, severe right hip pain, morbid obesity, breast cancer, type 2 diabetes, poorly controlled, severe atherosclerosis, marked dyspnea, hypoxia, type 2 diabetes, intractable pain, sinus tachycardia as indicated. PLAN: We will continue to monitor her and adjust her medications, get PT, OT with that right hip and make further evaluation at that time. SHOBHA QUEVEDO MD DR: ZE/scotty JOB#: [id number] / [id number]
[2020-10-10 19:36] VITALS: BP 166/69
[2020-10-10] MEDS: ATORVASTATIN CALCIUM 20 MG TABLET PO SCH (20:47)
[2020-10-10] MEDS: MONTELUKAST 10 MG TABLET. PO SCH (20:47)
[2020-10-10] MEDS ORDERED: INSULIN GLARGINE SYRINGE. SQ SCH (21:00)
[2020-10-10 22:35] VITALS: BP 122/64
[2020-10-11] MEDS: oxyCODONE/APAP 5/325 1 TAB TABLET PO PRN (04:27)
[2020-10-11] MEDS: IPRATRPIUM/ALBUTEROL 0.5/2.5MG 3 ML NEBU. NEB SCH ×2 (05:08→09:10)
[2020-10-11 05:25] VITALS: BP 130/69
--- NOTE | 2020-10-11 07:56 | PDOC ---
CARDIO Progress Notes Date & Time Date of Service DATE: 10/11/20 TIME: 07:54 Time of Evaluation 07:54 Subjective Notes No chest pain, palpitations, dizziness, diaphoresis, or SOA Vitals Vitals Vital Signs Date Time Temp Pulse Resp B/P (MAP) Pulse Ox O2 Delivery O2 Flow Rate FiO2 10/11/20 05:26 20 Nasal Cannula 2.0 10/11/20 05:25 98.8 68 130/69 (89) 92 Weight Weight [ ] Input and Output I.O. Intake and Output 10/11/20 07:00 Intake Total 1280 ml Balance 1280 ml Intake Oral 1280 ml # Voids 4 # Bowel Movements 1 Laboratory Labs Laboratory Tests Test 10/09/20 11:55 10/09/20 16:25 10/09/20 19:49 10/10/20 11:51 Glucose (Fingerstick) 395 mg/dL (70-99) 362 mg/dL (70-99) 390 mg/dL (70-99) 287 mg/dL (70-99) Test 10/10/20 16:53 10/10/20 20:46 Glucose (Fingerstick) 360 mg/dL (70-99) 338 mg/dL (70-99) Microbiology Micro Microbiology 10/08/20 Blood Culture - Preliminary, Resulted NO GROWTH AFTER 2 DAYS... Physical Exams HEENT: Neck Supple W Full Motion Chest: Symmetric Lungs: Clear to Auscultation Heart: RRR Abdomen: Soft N/T Extremities: No Edema Neurology: alert, oriented, follow commands Assessment Assessment 1. Chest pain, atypical; AMI ruled out 2. Palpitations; brief burst of SVT noted on tele. Improved with BB 3. Accelerated hypertension; now controlled 4. Diabetes, II 5. LILO Recommendations Continue metoprolol for rate control ASA therapy Outpatient event monitor given palpitations, tachycardia Outpatient ischemic evaluation Follow up with primary octave board racker with [facility], Dr. David Hill to discharge from a CV standpoint OSCAR BATRES APRN Oct 11, 2020 07:56
[2020-10-11] MEDS: METOPROLOL TART IMMED RELEASE 50 MG TABLET PO SCH (08:28)
[2020-10-11] MEDS: CETIRIZINE HCL 10 MG TABLET PO SCH (08:29)
[2020-10-11] MEDS: ANASTROZOLE 1 MG TABLET PO SCH (08:29)
[2020-10-11] MEDS: ASPIRIN ENTERIC COATED 81 MG TABLET.DR. PO SCH (08:30)
[2020-10-11] MEDS: PANTOPRAZOLE 40 MG TABLET. PO SCH (08:30)
[2020-10-11] MEDS: BENZONATATE 100 MG CAPSULE. PO SCH ×2 (08:30→14:09)
[2020-10-11] MEDS: guaiFENesin DM 600/30MG 1 TAB TAB.ER.12H PO SCH (08:30)
[2020-10-11] MEDS: metFORMIN 500 MG TABLET PO SCH (08:30)
[2020-10-11] MEDS: FLUTICASONE 50MCG/NASAL SPRAY 16GM BOTTLE. NS SCH (08:31)
[2020-10-11] MEDS: amLODIPine BESYLATE 10 MG TABLET PO SCH (08:31)
[2020-10-11] MEDS: CLOPIDOGREL BISULFATE 75 MG TABLET PO SCH (08:31)
[2020-10-11] MEDS: methylPREDNISolone SOD SUCC PF 40 MG/ML VIAL. IV SCH (08:32)
[2020-10-11] MEDS: INSULIN GLARGINE SYRINGE. SQ SCH (08:33)
[2020-10-11] MEDS: AZITHROMYCIN 250 MG TABLET. PO SCH (08:35)
[2020-10-11] MEDS: INSULIN LISPRO 300 UNITS/3 ML VIAL. SQ SCH ×3 (08:35→11:58)
[2020-10-11] MEDS: NON FORMULARY ITEM (Liraglutide (Victoza 3-Pak) 1.8 MG) SQ SCH (08:36)
[2020-10-11] MEDS: BUDESONIDE 0.5 MG/2 ML NEBU NEB SCH (09:10)
[2020-10-11 10:38] VITALS: BP 129/67
[2020-10-11] MEDS ORDERED: OXYC1TAB15 PO (13:07)
[2020-10-11] MEDS ORDERED: INSU100I11 SQ (13:07)
[2020-10-11] MEDS ORDERED: GUAI-108 PO (13:07)
[2020-10-11] MEDS ORDERED: PRED-220 PO (13:07)
[2020-10-11] MEDS ORDERED: AZIT250T6 PO (13:07)
--- NOTE | 2020-10-11 15:01 | DISCH ---
HOME HEALTH DISCHARGE/MEDS DISCHARGE INFORMATION: Discharge Date: Oct 11, 2020 Final Diagnosis: Problems Medical Problems: (1) Chest pain Status: Acute Hypoxia due to emphysema Diabetes Morbid obesity Condition on Discharge: Stable CODE STATUS: Code Status: Full HOME HEALTH: Face to Face: I certify this patient is under my care and that I, or a nurse practitioner or physician's hair assistant working with me, had a face to face encounter that meets the physician face to face encounter requirements with this patient on 10/11/2020. Medical Condition(s): DM, HTN, Other (emphysemia) Longterm For: Assess Cardiopulm Status, Assess & Educate Safety, Assess/Skilled Observatio, Diabetic Care, Medication Management, Pain Management, Other: (oxygen therapy) Physical Therapy For: Evalulation/Treatment Occupational Therapy For: Evaluation/Treatment POST DISCHARGE ORDERS: Activity Instructions for Disc: Activity as tolerated Weight Bearing Status after Di: No restrictions DIET AFTER DISCHARGE: ADA CHECKS AFTER DISCHARGE: Checks after discharge: Check blood press - daily, Check blood sugar, ac/hs CERTIFICATION STATEMENT: Certification Statement: Based on the above finding, I certify that this patient is confined to the home and needs intermittent alf care, physical therapy and/or speech therapy, or continues to need occupational therapy.~ This patient is under my care, and I have initiated the establishment of the plan of care.~ This patient will be followed by myself or a community physician who will periodically review the plan of care. DISCHARGE MEDICATIONS: Home Meds Active Scripts Prednisone (PREDNISONE) 10 Mg Tablet, 10 MG PO DAILY for emphsyema for 28 Days, #28 TAB Prov:SHOBHA QUEVEDO MD 10/11/20 Insulin Lispro (HUMALOG) 100 Unit/1 Ml Insuln.pen, 20 UNITS SQ TIDAC for diabetes for 30 Days, #1 EACH Prov:SHOBHA QUEVEDO MD 10/11/20 Guaifenesin/Dextromethorphan (MUCINEX DM ER 600-30 MG TABLET) 1 Each Tab.er.12h, 1 TAB PO BID for cough for 30 Days, #60 TAB.SR Prov:SHOBHA QUEVEDO MD 10/11/20 Azithromycin (AZITHROMYCIN TABLET) 250 Mg Tablet, 250 MG PO DAILY for bronchtis for 3 Days, #3 TAB Prov:SHOBHA QUEVEDO MD 10/11/20 Oxycodone Hcl/Acetaminophen (PERCOCET 5-325 MG TABLET ) 1 Each Tablet, 1 TAB PO PRN Q6HRS PRN for PAIN for 10 Days, #20 TAB Prov:SHOBHA QUEVEDO MD 10/11/20 Reported Medications Anastrozole (ARIMIDEX) 1 Mg Tablet, 1 TAB PO DAILY for HORMONE REPLACEMENT, TAB 10/08/20 Insulin Glargine,Hum.rec.anlog (LANTUS SOLOSTAR) 100 Unit/1 Ml Insuln.pen, 35 UNIT SQ BID for DIABETES, ML 10/08/20 Fluticasone/Salmeterol (ADVAIR 250-50 DISKUS) 1 Each Disk.w.dev, 1 PUFF IH BID for ALLERGY, INHALER 10/08/20 Cetirizine Hcl (ZYRTEC) 10 Mg Tablet, 2 TAB PO DAILY for ALLERGY, TAB 10/08/20 Metformin Hcl (METFORMIN HCL) 500 Mg Tablet, 1 TAB PO BID for BLOOD SUGAR, TAB 10/08/20 Rosuvastatin Calcium (CRESTOR) 40 Mg Tablet, 1 TAB PO DAILY for LOWER CHOLESTEROL, TAB 10/08/20 Fluticasone Propionate (Flonase Allergy Relief) 9.9 Ml Poneto.susp, 2 SPRAYS NS DAILY, BOTTLE 12/20/17 Insulin Aspart (NOVOLOG) 100 Unit/1 Ml Vial, 20 UNIT SQ TIDAC for diabetes, VIAL 12/20/17 Albuterol Sulfate (ALBUTEROL SULFATE HFA INHALER) 8.5 Gm Hfa.aer.ad, 8.5 GM IH Q4HRS for FOR ASTHMA, INHALER 0 Refills for shortness of breath not given this admission 09/27/14 Liraglutide (VICTOZA 3-GAVIN) 0.6 Mg/0.1 Ml Pen.injctr, 1.8 MG SQ DAILY, ML for high blood sugar last dose: 09/30 AM next dose: 10/01 AM 09/27/14 Clopidogrel Bisulfate (PLAVIX) 75 Mg Tablet, 1 TAB PO DAILY, TAB blood thinner last dose: 09/30 AM next dose: 10/01 AM 07/15/14 Metoprolol Succinate (TOPROL XL) 50 Mg Tab.er.24h, 75 MG PO BID for FOR HYPERTENSION, TAB for high blood pressure. Took LOPRESSOR here. may resume 09/30 pm 07/15/14 Atorvastatin Calcium (LIPITOR) 80 Mg Tablet, 80 MG PO QHS for FOR CHOLESTEROL, TAB for high cholesterol last dose: 09/29 @ 9:25 PM next dose: 09/30 PM 07/15/14 Levalbuterol Hcl (XOPENEX) 1.25 Mg/3 Ml Vial.neb, 1 VIAL NEB QID PRN for SHORTNESS OF BREATH, VIAL take as needed for shortness of breath not given this admission 07/15/14 Aspirin (ASPIR 81) 81 Mg Tablet.dr, 1 TAB PO DAILY, TAB prophylactic blood thinner last dose: 09/30 next dose: 10/0107/15/14 Fluticasone/Salmeterol (ADVAIR 250-50 DISKUS) 1 Each Disk.w.dev, 1 PUFF IH BID, INHALER for shortness of breath last dose: 09/30 next dose: 09/30 PM 07/15/14 Esomeprazole Strontium (ESOMEPRAZOLE CAPSULE) 40 Mg Capsule.dr, 40 MG PO DAILY, CAP for acid reflux. Took Protonix whiel here. last dose: 09/30 next dose: 10/01 AM 07/15/14 Montelukast Sodium (SINGULAIR TABLET ) 10 Mg Tablet, 10 MG PO HS for FOR ASTHMA, TAB last dose 09/29 pm next dose 09/3007/15/14 Discontinued Reported Medications Potassium Chloride (K-TAB) 10 Meq Tablet.er, 20 MEQ PO DAILY supplement last dose: 09/30 next dose: 10/0107/15/14 Furosemide (LASIX) 20 Mg Tablet, 1 TAB PO DAILY, TAB for fluid retention last dose: 09/30 next dose: 10/0107/15/14 Insulin Detemir (LEVEMIR FLEXPEN) 100 Unit/1 Ml Insuln.pen, 20 UNIT SQ BID for high blood pressure last dose: 09/30 AM next dose: 09/30 PM 07/15/14 Discontinued Scripts Clindamycin Hcl (CLINDAMYCIN HCL) 300 Mg Capsule, 1 CAP PO BID for infection prophylaxis, #14 CAP Prov:MARY METZ DO 04/30/19 SHOBHA QUEVEDO MD Oct 11, 2020 15:01
--- NOTE | 2020-10-11 18:25 | DS ---
DATE OF DISCHARGE: 10/11/2020 HOSPITAL COURSE: A 70-year-old female admitted with chest pain and sinus tachycardia, rates greater than 200, the patient made good progress. She also had some bronchitis for which she was treated for and with appropriate therapy, made good progress. Her blood sugars were elevated; however, we did finally get her down into the 100s and the patient will continue to be monitored on that accordingly. The patient had severe right hip pain but that just showed moderate osteoarthritis of the right hip. There was no abnormality to the right femur itself and her chest x-ray showed some atelectasis, otherwise atherosclerosis and hypertrophic cardiomyopathy for which she sees her contact lens technician for. Chest x-ray was unremarkable. During the case, the patient made good progress overall. The chemistries also demonstrated mild hypothyroidism, albumin moderate protein malnutrition. Otherwise, the patient made good progress during the rest of her hospitalization and will continue to be monitored as an outpatient. IMPRESSION: Therefore, chest pain, angina, severe right hip pain, obesity, history of left breast cancer, type 2 diabetes, poorly controlled, atherosclerosis, dyspnea, hypoxia, bronchitis, acute sinus tachycardia, intractable pain. Continue with present drug regimen and have her follow up as an outpatient, make further evaluation on her as indicated. SHOBHA QUEVEDO MD DR: ZE/scotty JOB#: [id number] / [id number]
== END 2020-10-11 16:00 | disposition home health service (06) | DRG 303 ==
LOC: ER 07:25 → 1 SOUTH 11:56 → OBSVTOIN 14:19
PROVIDERS: ADMIT Family Medicine; ATTEND Family Medicine
DX: I25.119 Atherosclerotic heart disease of native coronary artery with unspecified angina pectoris (principal); E44.0 Moderate protein-calorie malnutrition; I47.1 Supraventricular tachycardia; J98.11 Atelectasis; Z68.41 Body mass index [BMI] 40.0-44.9, adult; E03.9 Hypothyroidism, unspecified; E11.9 Type 2 diabetes mellitus without complications; E66.01 Morbid (severe) obesity due to excess calories; G47.33 Obstructive sleep apnea (adult) (pediatric); I10 Essential (primary) hypertension; J43.9 Emphysema, unspecified; M16.11 Unilateral primary osteoarthritis, right hip; M79.7 Fibromyalgia; F32.9 Major depressive disorder, single episode, unspecified; G47.30 Sleep apnea, unspecified; I42.2 Other hypertrophic cardiomyopathy; K21.9 Gastro-esophageal reflux disease without esophagitis; Z81.8 Family history of other mental and behavioral disorders; Z82.49 Family history of ischemic heart disease and other diseases of the circulatory system; Z85.3 Personal history of malignant neoplasm of breast; Z86.73 Personal history of transient ischemic attack (TIA), and cerebral infarction without residual deficits; Z87.891 Personal history of nicotine dependence; Z91.5 Personal history of self-harm; Z88.1 Allergy status to other antibiotic agents; Z88.2 Allergy status to sulfonamides; Z88.8 Allergy status to other drugs, medicaments and biological substances
CPT/HCPCS: 36415; 71045; 71275; 73502; 73700; 74177; 80048; 80053; 80061; 80076; 81001; 82947; 83605; 83690; 83735; 83880; 84443; 84484; 85025; 85379; 87040; 93005; 93306; 94618; 94640; 94760; 96374; G0378; G0379; J1650; J1815; J2270; J2405; J2920; J7040; Q9967; 97530; 99285-25; J7030

== ENCOUNTER → 2020-10-25 | Outpatient (CLI) | payer MEDICARE, OTHER ==
[2020-10-11 10:38] VITALS: BP 129/67
[~2020-10-25] MED LIST changes: +ANAS1TAB47 PO; +AZIT250T6 PO; +CETI10TA74 PO; +CRESTOR40 MG PO; +GUAI-108 PO; +INSU100I11 SQ; +INSU100I13 SQ; +METF500T16 PO; +PRED-220 PO
--- NOTE | 2020-10-25 19:03 | RAD ---
Limited abdominal ultrasound INDICATION: Discoloration and bruising of the right lower quadrant abdominal wall. TECHNIQUE: Grayscale and color Doppler imaging of the abdominal wall right lower quadrant the area of discoloration and bruising was performed. FINDINGS: Within the large depth of subcutaneous fat present, multiple fluid collections with surrounding echog enicity are present, largest measuring 2 cm in the right mid abdomen. These are all superficial, clos e to the skin surface. IMPRESSION: Multiple complex fluid collections within the subcutaneous fat corresponding with the areas of bruisi ng. These could represent small hematomas as sequelae of subcutaneous medication administration. Paramjit feng clinically. Recommend clinical follow-up. Electronically signed by: Thad Issa MD (10/25/2020 7:01 PM) [id number]
== END ==
LOC: US 12:39
PROVIDERS: ATTEND Family Medicine
DX: S30.1XXA Contusion of abdominal wall, initial encounter (principal); X58.XXXA Exposure to other specified factors, initial encounter; Y93.89 Activity, other specified; Y92.89 Other specified places as the place of occurrence of the external cause; Y99.8 Other external cause status
CPT/HCPCS: 76705

== ENCOUNTER 2021-01-27 09:57 | Emergency (ER) | payer MEDICARE, OTHER ==
[~2021-01-27] VITALS: Ht 154.9 cm; Wt 105.2 kg
[2021-01-27 10:00] VITALS: BP 124/58
--- NOTE | 2021-01-27 10:30 | RAD ---
EXAM: Chest, single view. HISTORY: Chest pain. COMPARISON: 10/08/2020 FINDINGS: A frontal view of the chest is obtained. There is no infiltrate, pleural effusion or pneumo thorax. The heart is normal in size. IMPRESSION: No acute pulmonary finding. Electronically signed by: Jasmin Kramer MD (01/27/2021 10:28 AM) [id number]
--- NOTE | 2021-01-27 10:32 | PHYS DOC ---
Past History Past Medical History: Arthritis, Cancer, CVA, Diabetes, Heart Disease, Hypertension, Other Past Surgical History: Cancer Surgery, Other Additional Past Surgical Histo: tonsillectomy, hemmoroidectomy Smoking: Non-smoker Alcohol Use: None Drug Use: None General Adult EDM: Chief Complaint: CHEST PAIN HPI: HPI: 71-year-old female presents with 4-day history of intermittent chest pain. Patient states that she has had "crushing chest pain like an elephant" in the middle of her chest on and off for the last few days. She went to her primary care physician who gave her 2 sublingual nitros and sent her to the ER. She tells me that she does not have pain at this time. She does feel like she is able to take a deeper breath now. Patient does not have an official COPD diagnosis, but was a smoker for over 20 years. She denies diaphoresis. Nothing seems to make the pain better or worse. She feels like she is breathing more shallow than normal and there is some discomfort with breathing. She denies fever or chills. Review of Systems: Review of Systems: Constitutional: Denies fever or chills Eyes: Denies change in visual acuity HENT: Denies nasal congestion or sore throat Respiratory: shortness of breath Cardiovascular: Chest pain GI: Denies abdominal pain, nausea, vomiting, bloody stools or diarrhea : Denies dysuria Musculoskeletal: Denies back pain or joint pain Integument: Denies rash Neurologic: Denies headache, focal weakness or sensory changes Endocrine: Denies polyuria or polydipsia Lymphatic: Denies swollen glands Psychiatric: Denies depression or anxiety Allergies: Allergies: Allergies Coded Allergies Type Severity Reaction Last Updated Verified tramadol Allergy Severe seizure 10/08/20 Yes clonazepam Allergy Intermediate 10/08/20 Yes diltiazem Allergy Intermediate 10/08/20 Yes nitrofurantoin Allergy Intermediate rash 10/08/20 Yes valsartan Allergy Intermediate chest pain 10/08/20 Yes Sulfa (Sulfonamide Antibiotics) Allergy Mild 10/08/20 Yes cephalexin Allergy Mild cramps 04/30/19 Yes isosorbide Allergy Mild Rash 04/30/19 Yes moxifloxacin Allergy Mild rash 04/30/19 Yes lisinopril Allergy Unknown 04/30/19 Yes Physical Exam: PE: Constitutional: Well developed, well nourished, obese, no acute distress, non- toxic appearance. [] HENT: Normocephalic, atraumatic, bilateral external ears normal, oropharynx moist, no oral exudates, nose normal. [] Eyes: PERRLA, EOMI, conjunctiva normal, no discharge. [] Neck: Normal range of motion, no tenderness, supple, no stridor. [] Cardiovascular: Heart rate 69, regular rhythm, no murmur [] Lungs & Thorax: Bilateral breath sounds clear to auscultation [] Abdomen: Bowel sounds normal, soft, no tenderness, no masses, no pulsatile masses. [] Skin: Warm, dry, no erythema, no rash. [] Back: No tenderness, no CVA tenderness. [] Extremities: No tenderness, no cyanosis, no clubbing, ROM intact, no edema. [] Neurologic: Alert and oriented X 3, normal motor function, normal sensory function, no focal deficits noted. [] Psychologic: Affect normal, judgement normal, mood normal. [] EKG: EKG: Sinus rhythm, rate 69, normal axis, no ST elevation or depression. [] Radiology/Procedures: Radiology/Procedures: [] Heart Score: C/O Chest Pain: Yes HEART Score for Chest Pain: HEART Score for Chest Pain Response (Comments) Value History Moderately Suspicious 1 ECG Normal 0 Age > 65 2 Risk Factors 1 or 2 Risk Factors 1 Troponin < Normal Limit 0 Total 4 Risk Factors: Risk Factors: DM, Current or recent (<one month) smoker, HTN, HLP, family history of CAD, obesity. Risk Scores: Score 0 - 3: 2.5% MACE over next 6 weeks - Discharge Home Score 4 - 6: 20.3% MACE over next 6 weeks - Admit for Clinical Observation Score 7 - 10: 72.7% MACE over next 6 weeks - Early Invasive Strategies Course & Med Decision Making: Course & Med Decision Making Pertinent Labs and Imaging studies reviewed. (See chart for details) Patient's EKG is unremarkable. Her labs are unremarkable. Her troponin is negative. The patient is requiring oxygen in the ER which was initially concerning. The patient then told the nurse that in addition to her smoking history she has been diagnosed with COPD and has home oxygen for intermittent use. She is on 1 L. This is greatly reassuring. I spoke with Dr. Garzon about the patient. He was willing to let the patient decide whether or not she wanted to be admitted. The patient would prefer to go home. I have given her instructions about any returning or worsening symptoms she would need to come back to emergency room. She is okay with this. She is stable for discharge at this time. [] Dragon Disclaimer: Dragon Disclaimer: This electronic medical record was generated, in whole or in part, using a voice recognition dictation system. Departure Departure: Impression: Primary Impression: Chest pain Additional Impression: Dyspnea Disposition: 01 HOME / SELF CARE / HOMELESS Condition: STABLE Referrals: SHOBHA GARZON MD (PCP) Patient Instructions: Chest Pain (Nonspecific), [id number] MARY METZ DO January 27, 2021 10:32
[2021-01-27 10:40] LABS: BASO # 0.1 x10^3/uL (0.0-0.2); BASO % 1 % (0-3); EOS # 0.2 x10^3/uL (0.0-0.7); EOS % 3 % (0-3); HEMATOCRIT 40.4 % (36.0-47.0); HEMOGLOBIN 13.2 g/dL (12.0-15.5); LYMPH # 2.3 x10^3/uL (1.0-4.8); LYMPH % 24 % (24-48); MEAN CORPUSCULAR HEMOGLOBIN 29 pg (25-35); MEAN CORPUSCULAR HGB CONC 33 g/dL (31-37); MEAN CORPUSCULAR VOLUME 89 fL (79-100); MONO # 0.6 x10^3/uL (0.0-1.1); MONO % 6 % (0-9); NEUT # 6.3 x10^3uL (1.8-7.7); NEUT % 67 % (31-73); PLATELET COUNT 238 x10^3/uL (140-400); RED BLOOD COUNT 4.52 x10^6/uL (3.50-5.40); RED CELL DISTRIBUTION WIDTH 14.7 % (11.5-14.5); WHITE BLOOD COUNT 9.4 x10^3/uL (4.0-11.0)
--- NOTE | 2021-01-27 10:40 | EKG ---
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
[2021-01-27 10:52] LABS: CALCIUM 9.4 mg/dL (8.5-10.1); CREATININE 0.8 mg/dL (0.6-1.0); GFR 70.9; POTASSIUM 4.4 mmol/L (3.5-5.1)
[2021-01-27 10:58] LABS: ALBUMIN 3.4 g/dL (3.4-5.0); TOTAL BILIRUBIN 0.3 mg/dL (0.2-1.0); TOTAL PROTEIN 6.8 g/dL (6.4-8.2)
== END 2021-01-27 12:55 | disposition home or self-care (01) ==
LOC: ER 09:57
DX: R07.89 Other chest pain (principal); R06.00 Dyspnea, unspecified; I10 Essential (primary) hypertension; Z86.73 Personal history of transient ischemic attack (TIA), and cerebral infarction without residual deficits; Z88.1 Allergy status to other antibiotic agents; Z88.2 Allergy status to sulfonamides; Z88.6 Allergy status to analgesic agent; Z88.8 Allergy status to other drugs, medicaments and biological substances
CPT/HCPCS: 36415; 71045; 80053; 84484; 85025; 93005; 99285-25

== ENCOUNTER 2021-01-29 10:28 | Inpatient (IN) | payer MEDICARE, OTHER ==
[~2021-01-29] VITALS: Ht 152.4 cm; Wt 107.0 kg
--- NOTE | 2021-01-29 10:59 | RAD ---
Study: XR CHEST 1V Indication: Chest pain. Comparison: 01/27/2021 Findings: Electronic device projects over of the right paratracheal stripe. Unchanged cardiomediastinal silhouette and lacho. No confluent airspace infiltrate, layering effusion or pneumothorax. Similar aeration pattern of the lungs from the prior. Impression: No acute radiographic abnormality of the chest. No significant change from 01/27/2021. Electronically signed by: DANTE FERMIN MD (01/29/2021 10:57 AM) [id number]
[2021-01-29 11:02] LABS: BASO # 0.1 x10^3/uL (0.0-0.2); BASO % 1 % (0-3); EOS # 0.2 x10^3/uL (0.0-0.7); EOS % 3 % (0-3); HEMATOCRIT 40.6 % (36.0-47.0); HEMOGLOBIN 13.4 g/dL (12.0-15.5); LYMPH # 2.2 x10^3/uL (1.0-4.8); LYMPH % 22 % (24-48); MEAN CORPUSCULAR HEMOGLOBIN 30 pg (25-35); MEAN CORPUSCULAR HGB CONC 33 g/dL (31-37); MEAN CORPUSCULAR VOLUME 90 fL (79-100); MONO # 0.7 x10^3/uL (0.0-1.1); MONO % 7 % (0-9); NEUT # 6.5 x10^3uL (1.8-7.7); NEUT % 67 % (31-73); PLATELET COUNT 210 x10^3/uL (140-400); RED BLOOD COUNT 4.51 x10^6/uL (3.50-5.40); RED CELL DISTRIBUTION WIDTH 14.9 % (11.5-14.5); WHITE BLOOD COUNT 9.7 x10^3/uL (4.0-11.0)
--- NOTE | 2021-01-29 11:06 | PHYS DOC ---
Past History Past Medical History: A-Fib, Arthritis, Cancer, CVA, Diabetes, Heart Disease, Hypertension, Other Past Surgical History: Cancer Surgery, Other Additional Past Surgical Histo: tonsillectomy, hemmoroidectomy Smoking: Non-smoker Alcohol Use: None Drug Use: None General Adult EDM: Chief Complaint: CHEST PAIN HPI: HPI: 71-year-old female returns emergency room via EMS. Patient had central chest pressure this morning around 630. She took 1 nitro and it improved. About 830 the pain came back and the patient is taken 2 more nitros. The pain has improved to a 2 out of 10. She met with her stamping machine operator yesterday who told her that if she had used more than 1 nitro that she would need to come to the hospital. She is supposed to have a stress test on Sunday. She denies fever or chills. She does have some shortness of breath, but no diaphoresis. Review of Systems: Review of Systems: Constitutional: Denies fever or chills Eyes: Denies change in visual acuity HENT: Denies nasal congestion or sore throat Respiratory: Shortness of breath Cardiovascular: Chest pain GI: Denies abdominal pain, nausea, vomiting, bloody stools or diarrhea : Denies dysuria Musculoskeletal: Denies back pain or joint pain Integument: Denies rash Neurologic: Denies headache, focal weakness or sensory changes Endocrine: Denies polyuria or polydipsia Lymphatic: Denies swollen glands Psychiatric: Denies depression or anxiety Allergies: Allergies: Allergies Coded Allergies Type Severity Reaction Last Updated Verified tramadol Allergy Severe seizure 10/08/20 Yes clonazepam Allergy Intermediate 10/08/20 Yes diltiazem Allergy Intermediate 10/08/20 Yes nitrofurantoin Allergy Intermediate rash 10/08/20 Yes valsartan Allergy Intermediate chest pain 10/08/20 Yes Sulfa (Sulfonamide Antibiotics) Allergy Mild 10/08/20 Yes cephalexin Allergy Mild cramps 04/30/19 Yes isosorbide Allergy Mild Rash 04/30/19 Yes moxifloxacin Allergy Mild rash 04/30/19 Yes lisinopril Allergy Unknown 04/30/19 Yes Physical Exam: PE: Constitutional: Well developed, well nourished, morbidly obese, no acute distress, non-toxic appearance. [] HENT: Normocephalic, atraumatic, bilateral external ears normal, oropharynx moist, no oral exudates, nose normal. [] Eyes: PERRLA, EOMI, conjunctiva normal, no discharge. [] Neck: Normal range of motion, no tenderness, supple, no stridor. [] Cardiovascular: Heart rate 83, regular rhythm, no murmur [] Lungs & Thorax: Bilateral breath sounds clear to auscultation [] Abdomen: Bowel sounds normal, soft, no tenderness, no masses, no pulsatile masses. [] Skin: Warm, dry, no erythema, no rash. [] Back: No tenderness, no CVA tenderness. [] Extremities: No tenderness, no cyanosis, no clubbing, ROM intact, no edema. [] Neurologic: Alert and oriented X 3, normal motor function, normal sensory function, no focal deficits noted. [] Psychologic: Affect normal, judgement normal, mood normal. [] Current Patient Data: Vital Signs: Vital Signs Date Time Temp Pulse Resp B/P (MAP) Pulse Ox O2 Delivery O2 Flow Rate FiO2 01/29/21 10:34 98.0 85 20 124/58 (80) 97 EKG: EKG: Sinus rhythm, rate 83, normal axis, no ST elevation or depression. [] Radiology/Procedures: Radiology/Procedures: [] Impressions: Study: XR CHEST 1V Indication: Chest pain. Comparison: 01/27/2021 Findings: Electronic device projects over of the right paratracheal stripe. Unchanged cardiomediastinal silhouette and lacho. No confluent airspace infiltrate, layering effusion or pneumothorax. Similar aeration pattern of the lungs from the prior. Impression: No acute radiographic abnormality of the chest. No significant change from 01/27/2021. Electronically signed by: DANTE FERMIN MD (01/29/2021 10:57 AM) [id number] DICTATED AND SIGNED BY: DANTE FERMIN MD DATE: 01/29/21 1056 CC: MARY METZ DO; SHOBHA QUEVEDO MD ~MTH0 0 Heart Score: C/O Chest Pain: Yes HEART Score for Chest Pain: HEART Score for Chest Pain Response (Comments) Value History Moderately Suspicious 1 ECG Normal 0 Age > 65 2 Risk Factors 1 or 2 Risk Factors 1 Total 4 Risk Factors: Risk Factors: DM, Current or recent (<one month) smoker, HTN, HLP, family history of CAD, obesity. Risk Scores: Score 0 - 3: 2.5% MACE over next 6 weeks - Discharge Home Score 4 - 6: 20.3% MACE over next 6 weeks - Admit for Clinical Observation Score 7 - 10: 72.7% MACE over next 6 weeks - Early Invasive Strategies Course & Med Decision Making: Course & Med Decision Making Pertinent Labs and Imaging studies reviewed. (See chart for details) The patient's labs are unremarkable. Her troponin is negative. Her EKG is unremarkable. Chest x-ray is negative for acute findings. Given this is the patient's second ER visit and she was told to come here by cardiology with a pe nding stress test. I believe it is prudent to admit the patient for further observation and trending of her troponins. I spoke with Dr. Quevedo and he has accepted the patient for admission. [] Dragon Disclaimer: Dragon Disclaimer: This electronic medical record was generated, in whole or in part, using a voice recognition dictation system. Departure Departure: Impression: Primary Impression: Chest pain Disposition: ADMITTED INPATIENT Admitting Physician: Shobha Quevedo Referrals: SHOBHA QUEVEDO MD (PCP) MARY METZ DO January 29, 2021 11:06
[2021-01-29 11:14] LABS: CALCIUM 9.5 mg/dL (8.5-10.1); CREATININE 0.6 mg/dL (0.6-1.0); GFR 98.8; POTASSIUM 4.7 mmol/L (3.5-5.1)
[2021-01-29 11:20] LABS: ALBUMIN 3.3 g/dL (3.4-5.0); ALBUMIN/GLOBULIN RATIO 0.8 (1.0-1.7); TOTAL BILIRUBIN 0.4 mg/dL (0.2-1.0); TOTAL PROTEIN 7.5 g/dL (6.4-8.2)
[2021-01-29] MEDS ORDERED: ONDANSETRON PF 4 MG/2 ML VIAL. IVP PRN (11:45)
--- NOTE | 2021-01-29 11:45 | EKG ---
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
[2021-01-29] MEDS: NITROGLYCERIN SUBLINGUAL 0.4 MG BOTTLE OF 25. SL PRN ×3 (13:40→18:55)
[2021-01-29 13:51] VITALS: BP 124/76
[2021-01-29] MEDS ORDERED: CHOL400C PO (14:12)
[2021-01-29] MEDS ORDERED: DICL100G18 TP (14:12)
[2021-01-29] MEDS ORDERED: AMLO5TAB4 PO (14:12)
[2021-01-29 14:53] VITALS: BP 113/62
[2021-01-29 15:01] VITALS: BP 186/84
[2021-01-29 15:16] VITALS: BP 141/71
--- NOTE | 2021-01-29 15:40 | EKG ---
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
[2021-01-29] MEDS ORDERED: METOPROLOL SUCC 24HR ER 25 MG TAB.ER.24H. PO ONE (16:00)
[2021-01-29] MEDS ORDERED: ALBUTEROL SULFATE 8GM INHALER. IH SCH (16:00)
[2021-01-29] MEDS ORDERED: DICLOFENAC SODIUM 1% TOPICAL GEL 100GM TUBE. TP PRN (16:00)
[2021-01-29] MEDS ORDERED: INSULIN LISPRO 300 UNITS/3 ML VIAL. SQ SCH (16:30)
[2021-01-29] MEDS ORDERED: ENOXAPARIN 40 MG/0.4 ML SYRINGE. SQ SCH (16:30)
[2021-01-29] MEDS ORDERED: MAALOX:LIDO:APAP 6:2:1 ORAL SUSPENSION 180 ML BOTTLE. PO PRN (17:00)
[2021-01-29] MEDS ORDERED: PANTOPRAZOLE 40 MG TABLET. PO ONE (17:00)
[2021-01-29] MEDS ORDERED: LIDO:MAALOX 1:1 20 ML SINGLE DOSE. PO PRN (17:15)
[2021-01-29 18:55] VITALS: BP 141/71
[2021-01-29] MEDS ORDERED: BUDESONIDE 0.5 MG/2 ML NEBU NEB SCH (20:00)
[2021-01-29] MEDS ORDERED: ALBUTEROL SULFATE 2.5 MG/3 ML NEBU. NEB SCH (20:00)
[2021-01-29] MEDS ORDERED: MONTELUKAST 10 MG TABLET. PO SCH (21:00)
[2021-01-29] MEDS ORDERED: INSULIN GLARGINE SYRINGE. SQ SCH (21:00)
[2021-01-29] MEDS ORDERED: ATORVASTATIN CALCIUM 20 MG TABLET PO SCH (21:00)
[2021-01-29] MEDS ORDERED: METOPROLOL TART IMMED RELEASE 50 MG TABLET PO SCH (21:00)
[2021-01-29] MEDS ORDERED: NON FORMULARY ITEM (Fluticasone/Salmeterol (Advair 250-50 Diskus) 1 PUFF) IH SCH ×2 (21:00)
[2021-01-30] MEDS ORDERED: PANTOPRAZOLE 40 MG TABLET. PO SCH (07:30)
[2021-01-30] MEDS ORDERED: METOPROLOL SUCC 24HR ER 50 MG TAB.ER.24H. PO SCH (09:00)
[2021-01-30] MEDS ORDERED: metFORMIN 500 MG TABLET PO SCH (09:00)
[2021-01-30] MEDS ORDERED: amLODIPine BESYLATE 5 MG TABLET PO SCH (09:00)
[2021-01-30] MEDS ORDERED: CLOPIDOGREL BISULFATE 75 MG TABLET PO SCH (09:00)
[2021-01-30] MEDS ORDERED: ANASTROZOLE 1 MG TABLET PO SCH (09:00)
[2021-01-30] MEDS ORDERED: FLUTICASONE 50MCG/NASAL SPRAY 16GM BOTTLE. NS SCH (09:00)
[2021-01-30] MEDS ORDERED: CETIRIZINE HCL 10 MG TABLET PO SCH (09:00)
[2021-01-30] MEDS ORDERED: CHOLECALCIFEROL (VITAMIN D3) 1,000 UNIT TABLET PO SCH (09:00)
--- NOTE | 2021-01-31 12:33 | HP ---
HISTORY OF PRESENT ILLNESS: A 71-year-old female who came in through the Emergency Room with severe sharp chest pains. The patient had chest pain off and on, relieved with nitroglycerin. The patient had another bout of it where she had to take 2 nitro. She had seen her associate consulting engineer yesterday and he had set her up for a heart catheterization and nuclear stress test. The patient was admitted here because of her unstable angina. The patient noted the intensity of the pain was severe and radiated up into her left jaw. PAST MEDICAL AND SURGICAL HISTORY: She has had TIAs, carotid stents, hypertension, sleep apnea, GERD, hemorrhoidectomy, left mastectomy for breast cancer, hemorrhoids, urinary tract infection, fibromyalgia, arthritis, orthopedic surgery, heel surgeries, type 2 diabetic, previous suicide attempt at the age of 17, pneumococcal vaccination up-to-date. FAMILY HISTORY: Positive for schizophrenia and cardiovascular disease and the like. ALLERGIES: SULFA, KEFLEX, CLONAZEPAM, DILTIAZEM, ISOSORBIDE, LISINOPRIL, MOXIFLOXACIN, NITROFURANTOIN, TRAMADOL AND VALSARTAN. SOCIAL HISTORY: The patient denies smoking, alcohol or drug use and is a full code. REVIEW OF SYSTEMS: Outside of her chest pain, which is severe and substernal and radiating to her jaw, sometimes down her left arm. The patient denies any shortness of breath, denies any abdominal pain, nausea, vomiting, diaphoresis. Neurologically, no weakness noted. PHYSICAL EXAMINATION: GENERAL: This is a pleasant white female, somewhat obese, body weight 105 kilos. VITAL SIGNS: The blood pressure went as high as 186/84 with a pulse of 113, temperature 98.3, 92% on 2 liters. HEENT: Head is atraumatic, normocephalic. Eyes: PERRLA without jaundice. The mouth or throat were normal. NECK: Supple, good upstroke with the carotid pulses. LUNGS: Diminished but breath sounds were clear. CARDIAVASCULAR: Regular sinus rhythm. S1, S2, without murmur, rub, thrill, or extra heart sound. ABDOMEN: Protuberant, soft, nontender. EXTREMITIES: No clubbing, cyanosis. Trace edema. NEUROLOGIC: The patient was alert and oriented x3. Her speech was fluent, spontaneous, and appropriate. LABORATORY DATA: White count 9, hemoglobin 13 and 40. The patient's glucose was 252. Magnesium 2.4, albumin 3.3, BUN and creatinine 14 and 0.6; 140 and 4.7. IMPRESSION: Unstable angina, morbid obesity, type 2 diabetes, moderate protein malnutrition, familial hypercholesterolemia, history of stroke, coronary artery disease. The patient was transferred to [facility] with her associate consulting engineer there. YASMANY DR: Mervat TID: [id number]
== END 2021-01-29 19:16 | disposition short-term general hospital (02) | DRG 303 ==
LOC: ER 10:28 → 1 SOUTH 13:17
PROVIDERS: ADMIT Family Medicine; ATTEND Family Medicine
DX: I25.110 Atherosclerotic heart disease of native coronary artery with unstable angina pectoris (principal); E44.0 Moderate protein-calorie malnutrition; Z68.42 Body mass index [BMI] 45.0-49.9, adult; E11.9 Type 2 diabetes mellitus without complications; E66.01 Morbid (severe) obesity due to excess calories; E78.01 Familial hypercholesterolemia; I10 Essential (primary) hypertension; I48.91 Unspecified atrial fibrillation; M79.7 Fibromyalgia; G47.30 Sleep apnea, unspecified; K21.9 Gastro-esophageal reflux disease without esophagitis; M19.90 Unspecified osteoarthritis, unspecified site; Z81.8 Family history of other mental and behavioral disorders; Z82.49 Family history of ischemic heart disease and other diseases of the circulatory system; Z86.73 Personal history of transient ischemic attack (TIA), and cerebral infarction without residual deficits; Z90.12 Acquired absence of left breast and nipple; Z91.5 Personal history of self-harm; Z88.1 Allergy status to other antibiotic agents; Z88.2 Allergy status to sulfonamides; Z91.018 Allergy to other foods; Z85.3 Personal history of malignant neoplasm of breast
CPT/HCPCS: 36415; 71045; 80053; 82947; 83735; 84484; 85025; 93005; 96372; J1815; 99285-25

== ENCOUNTER → 2021-03-08 | Outpatient (CLI) | payer MEDICARE, OTHER ==
[~2021-03-08] MED LIST changes: +AMLO5TAB4 PO; +CHOL400C PO; +DICL100G18 TP
--- NOTE | 2021-03-08 15:19 | RAD ---
MG DIGITAL UNILAT DIAGNOSTIC MAMMO WITH BRAYN 03/08/2021 3:09 PM INDICATION: Asymptomatic screening mammogram. Left mastectomy for breast cancer. COMPARISON: 12/09/2019, 12/13/2018 TECHNIQUE: 3D tomosynthesis was performed in CC and MLO projections. 2D views were obtained from the 3D data. CAD was utilized as needed. FINDINGS: Breast density: Category B: There are scattered areas of fibroglandular density. Right breast: There are no suspicious microcalcifications, masses or areas of architectural distortio n. Right mammogram is compared to prior examinations appears unchanged. IMPRESSION: Negative right mammogram. BI-RADS category: 1; Negative Recommendations: Recommend annual screening mammography in one year. Electronically signed by: Deirdre Pham MD (03/08/2021 3:17 PM) [id number]
== END ==
LOC: MAMMO 14:43
PROVIDERS: ATTEND Family Medicine
DX: C50.919 Malignant neoplasm of unspecified site of unspecified female breast (principal); Z90.12 Acquired absence of left breast and nipple
CPT/HCPCS: 77065; G0279; 77061